=== PATIENT | male | born 1940 | race Caucasian/White ===

== ENCOUNTER → 2016-03-17 | Outpatient (CLI) | payer MEDICARE, BC ==
[2016-03-17 11:53] LABS: ALANINE AMINOTRANSFERASE 65 U/L (21-72); ALBUMIN 3.6 g/dL (3.5-5.0); ALKALINE PHOSPHATASE 169 U/L (38-126); ANION GAP 13 (5-19); ASPARTATE AMINO TRANSFERASE 57 U/L (17-59); BILIRUBIN,TOTAL 0.9 mg/dL (0.2-1.3); BLOOD UREA NITROGEN 33 mg/dL (7-20); CALCIUM 9.4 mg/dL (8.4-10.2); CARBON DIOXIDE 26 mmol/L (22-30); CHLORIDE 99 mmol/L (98-107); CHOLESTEROL 158.56 mg/dL (0-200); CREATININE RESULT 1.16 mg/dL (0.52-1.25); Direct HDL 44 mg/dL (>40); GLUCOSE 85 mg/dL (75-110); POTASSIUM 3.8 mmol/L (3.6-5.0); SODIUM 138.2 mmol/L (137-145); TOTAL PROTEIN 6.2 g/dL (6.3-8.2); TRIGLYCERIDES 117 mg/dL (<150)
[2016-03-17 12:05] LABS: DIRECT LDL 86 mg/dL (<100)
== END ==
LOC: OD 10:13
PROVIDERS: ATTEND Urology
DX: N40.1 Benign prostatic hyperplasia with lower urinary tract symptoms (principal); R31.9 Hematuria, unspecified; I48.0 Paroxysmal atrial fibrillation; Z79.01 Long term (current) use of anticoagulants; E78.5 Hyperlipidemia, unspecified; I50.32 Chronic diastolic (congestive) heart failure; I25.10 Atherosclerotic heart disease of native coronary artery without angina pectoris; Z79.899 Other long term (current) drug therapy
CPT/HCPCS: 36415; 80053; 80061; 85610

== ENCOUNTER → 2016-03-29 | Outpatient (CLI) | payer MEDICARE, BC ==
[2016-03-29 17:12] LABS: PROTHROMBIN TIME 20.9 SEC (11.4-15.4)
== END ==
LOC: OD 15:12
PROVIDERS: ATTEND Specialist
DX: I48.0 Paroxysmal atrial fibrillation (principal); Z79.01 Long term (current) use of anticoagulants; N40.1 Benign prostatic hyperplasia with lower urinary tract symptoms; R31.9 Hematuria, unspecified
CPT/HCPCS: 36415; 85610

== ENCOUNTER → 2016-04-29 | Outpatient (CLI) | payer MEDICARE, BC | LOC: OD 15:19 | PROVIDERS: ATTEND Specialist | DX: I48.0 Paroxysmal atrial fibrillation (principal); Z79.01 Long term (current) use of anticoagulants | CPT/HCPCS: 36415; 85610 ==

== ENCOUNTER → 2016-06-02 | Outpatient (CLI) | payer MEDICARE, BC ==
[2016-06-02 14:45] LABS: HEMATOCRIT 39.4 % (37.9-51.0); HEMOGLOBIN 13.3 g/dL (13.5-17.0); HGB HCT DIFFERENCE 0.5; MEAN CORPUSCULAR HEMOGLOBIN 32.1 pg (27.0-33.4); MEAN CORPUSCULAR HGB CONC 33.6 g/dL (32.0-36.0); MEAN CORPUSCULAR VOLUME 96 fl (80-97); RED BLOOD COUNT 4.12 10^6/uL (4.35-5.55); RED CELL DISTRIBUTION WIDTH 15.5 % (11.5-14.0); WHITE BLOOD COUNT 10.2 10^3/uL (4.0-10.5)
[2016-06-02 14:49] LABS: PROTHROMBIN TIME 33.3 SEC (11.4-15.4)
[2016-06-02 15:06] LABS: ALANINE AMINOTRANSFERASE 39 U/L (21-72); ALBUMIN 3.3 g/dL (3.5-5.0); ALKALINE PHOSPHATASE 129 U/L (38-126); ANION GAP 14 (5-19); ASPARTATE AMINO TRANSFERASE 43 U/L (17-59); BAND NEUTROPHILS % (MANUAL) 1 % (3-5); BASOPHILS % (MANUAL) 0 % (0-2); BILIRUBIN,DIRECT 0.4 mg/dL (0.0-0.4); BILIRUBIN,TOTAL 0.8 mg/dL (0.2-1.3); BLOOD UREA NITROGEN 25 mg/dL (7-20); C-REACTIVE PROTEIN 78.2 mg/L (<10.0); CALCIUM 8.9 mg/dL (8.4-10.2); CARBON DIOXIDE 27 mmol/L (22-30); CHLORIDE 96 mmol/L (98-107); CREATININE RESULT 0.96 mg/dL (0.52-1.25); EOSINOPHILS % (MANUAL) 0 % (0-6); GLUCOSE 90 mg/dL (75-110); LYMPHOCYTES % (MANUAL) 8 % (13-45); POTASSIUM 3.9 mmol/L (3.6-5.0); SODIUM 137.3 mmol/L (137-145); TOTAL CELLS COUNTED 100; TOTAL PROTEIN 6.5 g/dL (6.3-8.2)
[2016-06-02 15:09] LABS: ANISOCYTOSIS SLIGHT
[2016-06-02 15:20] LABS: ERYTHROCYTE SEDIMENTATION RATE 81 mm/hr (0-20)
== END ==
LOC: OD 13:18
PROVIDERS: ATTEND Nurse Practitioner Family
DX: T81.31XA Disruption of external operation (surgical) wound, not elsewhere classified, initial encounter (principal); I48.0 Paroxysmal atrial fibrillation; Z79.01 Long term (current) use of anticoagulants
CPT/HCPCS: 36415; 80053; 85025; 85610; 85652; 86140

== ENCOUNTER → 2016-06-25 | Outpatient (CLI) | payer MEDICARE, BC ==
[2016-06-25 16:08] LABS: PROTHROMBIN TIME 20.2 SEC (11.4-15.4)
== END ==
LOC: OD 14:57
PROVIDERS: ATTEND Specialist
DX: I48.0 Paroxysmal atrial fibrillation (principal); Z79.01 Long term (current) use of anticoagulants
CPT/HCPCS: 36415; 85610

== ENCOUNTER → 2016-09-03 | Outpatient (CLI) | payer MEDICARE, BC ==
--- NOTE | 2016-09-03 14:04 | RADIOLOGY REPORT (SQ) ---
EXAM DESCRIPTION: CT ABD/PELVIS NO ORAL OR IV COMPLETED DATE/TIME: 09/03/2016 1:02 pm REASON FOR STUDY: RLQ PAIN R10.31 RIGHT LOWER QUADRANT PAIN COMPARISON: None. TECHNIQUE: CT scan of the abdomen and pelvis performed without intravenous or oral contrast. Images reviewed with lung, soft tissue, and bone windows. Reconstructed coronal and sagittal MPR images revi ewed. All images stored on PACS. All CT scanners at this facility use dose modulation, iterative reconstruction, and/or weight based d osing when appropriate to reduce radiation dose to as low as reasonably achievable (ALARA). [facility]: Dose Right [facility]: CareDose [facility]: Dose Right [facility]: Teradose 4D [facility]: Smart [employer] RADIATION DOSE: Up-to-date CT equipment and radiation dose reduction techniques were employed. CTDIv ol: 22.1 mGy. DLP: 1270 mGy-cm.mGy. LIMITATIONS: None. FINDINGS: LOWER CHEST: No significant findings. No nodules or infiltrates. NON-CONTRASTED LIVER, SPLEEN, ADRENALS: Evaluation limited by lack of IV contrast. No identified sign ificant masses. PANCREAS: No masses. No peripancreatic inflammatory changes. GALLBLADDER: No identified stones by CT criteria. No inflammatory changes to suggest cholecystitis. RIGHT KIDNEY AND URETER: No suspicious masses. Assessment limited by lack of IV contrast. No signif icant calcifications. No hydronephrosis or hydroureter. LEFT KIDNEY AND URETER: No suspicious masses. Assessment limited by lack of IV contrast. No signifi cant calcifications. No hydronephrosis or hydroureter. AORTA AND RETROPERITONEUM: No aneurysm. No retroperitoneal masses or adenopathy. BOWEL AND PERITONEAL CAVITY: No obvious masses or inflammatory changes. No free fluid. APPENDIX: Surgically absent. PELVIS, BLADDER, AND ABDOMINAL WALL:No abnormal masses. No free fluid. Bladder normal. BONES: No significant findings. Degenerative changes in the spine. OTHER: No other significant finding. IMPRESSION: NO SIGNIFICANT OR ACUTE PROCESS IN THE ABDOMEN OR PELVIS. TECHNICAL DOCUMENTATION: JOB ID: [id number] Quality ID # [id number]: Final reports with documentation of one or more dose reduction techniques (e.g., Au tomated exposure control, adjustment of the mA and/or kV according to patient size, use of iterative reconstruction technique) 2010 [employer]- All Rights Reserved
== END ==
LOC: RAD 12:41
PROVIDERS: ATTEND Urology
DX: R10.31 Right lower quadrant pain (principal)
CPT/HCPCS: 74176

== ENCOUNTER 2016-09-24 15:51 | Emergency (ER) | payer MEDICARE, BC ==
--- NOTE | 2016-09-24 17:13 | ER Document Report ---
ED Medical Screen (RME) - General Chief Complaint: Urinary Problem Stated Complaint: BLOOD IN URINE Time Seen by Provider: 09/24/16 16:58 Notes: This 76-year-old male patient comes emergency room with frequency dysuria and hematuria. He was seen by his doctor 5 days ago and put on Septra, urine culture grew MRSA. He is on Coumadin for chronic atrial fibrillation. He also reports falling last week but was not seen for this. I have greeted and performed a rapid initial assessment of this patient. A comprehensive ED assessment and evaluation of the patient, analysis of test results and completion of the medical decision making process will be conducted by additional ED providers. TRAVEL OUTSIDE OF THE [place] IN LAST 30 DAYS: No - Related Data Allergies/Adverse Reactions: cephalexin monohydrate [From Nephera] Allergy (Severe, Verified 09/24/16 15:55) Past Medical History - Social History Chew tobacco use (# tins/day): No Frequency of alcohol use: None Drug Abuse: None - Past Medical History Cardiac Medical History: Reports: Hx Atrial Fibrillation, Hx DVT, Hx Hypertension Denies: Hx Heart Attack Pulmonary Medical History: Denies: Hx Asthma Neurological Medical History: Denies: Hx Cerebrovascular Accident, Hx Seizures Renal/ Medical History: Denies: Hx Peritoneal Dialysis GI Medical History: Reports: Hx Gastroesophageal Reflux Disease. Denies: Hx Hepatitis, Hx Hiatal Hernia, Hx Ulcer Musculoskeltal Medical History: Reports Hx Arthritis Psychiatric Medical History: Reports: Hx Depression Infectious Medical History: Denies: Hx Hepatitis Past Surgical History: Reports: Hx Orthopedic Surgery - Hip replacement. Denies : Hx Open Heart Surgery, Hx Pacemaker - Immunizations Hx Diphtheria, Pertussis, Tetanus Vaccination: Yes Physical Exam - Vital signs Vitals: Temp Pulse Resp BP Pulse Ox 97.5 F 59 L 16 145/77 H 98 09/24/16 15:55 09/24/16 15:55 09/24/16 15:55 09/24/16 15:55 09/24/16 15:55 Course - Vital Signs Vital signs: Temp Pulse Resp BP Pulse Ox 97.5 F 59 L 16 145/77 H 98 09/24/16 15:55 09/24/16 15:55 09/24/16 15:55 09/24/16 15:55 09/24/16 15:55
[2016-09-24 17:55] LABS: HEMATOCRIT 43.1 % (37.9-51.0); HGB HCT DIFFERENCE -1.1; MEAN CORPUSCULAR HGB CONC 32.5 g/dL (32.0-36.0); MEAN CORPUSCULAR VOLUME 102 fl (80-97); RED BLOOD COUNT 4.25 10^6/uL (4.35-5.55); RED CELL DISTRIBUTION WIDTH 17.6 % (11.5-14.0); WHITE BLOOD COUNT 12.4 10^3/uL (4.0-10.5)
[2016-09-24 17:56] LABS: PROTHROMBIN TIME 28.9 SEC (11.4-15.4)
[2016-09-24 18:04] LABS: ALANINE AMINOTRANSFERASE 40 U/L (21-72); ALBUMIN 4.1 g/dL (3.5-5.0); ALKALINE PHOSPHATASE 108 U/L (38-126); ANION GAP 13 (5-19); ASPARTATE AMINO TRANSFERASE 40 U/L (17-59); BILIRUBIN,DIRECT 0.4 mg/dL (0.0-0.4); BILIRUBIN,TOTAL 0.9 mg/dL (0.2-1.3); BLOOD UREA NITROGEN 37 mg/dL (7-20); CALCIUM 9.8 mg/dL (8.4-10.2); CARBON DIOXIDE 23 mmol/L (22-30); CHLORIDE 101 mmol/L (98-107); GLUCOSE 101 mg/dL (75-110); POTASSIUM 4.3 mmol/L (3.6-5.0); SODIUM 137.1 mmol/L (137-145); TOTAL PROTEIN 6.8 g/dL (6.3-8.2)
[2016-09-24 18:14] LABS: BAND NEUTROPHILS % (MANUAL) 3 % (3-5); BASOPHILS % (MANUAL) 0 % (0-2); EOSINOPHILS % (MANUAL) 0 % (0-6); LYMPHOCYTES % (MANUAL) 6 % (13-45); TOTAL CELLS COUNTED 100
[2016-09-24 18:18] LABS: ANISOCYTOSIS 1+; PLATELET CLUMPS PRESENT; POLYCHROMASIA SLIGHT
[2016-09-24 18:25] LABS: BILIRUBIN,URINE NEGATIVE (NEGATIVE); GLUCOSE, URINE NEGATIVE (NEGATIVE); KETONES,URINE NEGATIVE (NEGATIVE); LEUKOCYTE ESTERASE,URINE LARGE (NEGATIVE); NITRITE,URINE NEGATIVE (NEGATIVE); PROTEIN,URINE >=500 mg/dL (NEGATIVE); URINE SPECIFIC GRAVITY 1.015; UROBILINOGEN,URINE NEGATIVE mg/dL (<2.0)
[2016-09-24 18:26] LABS: APPEARANCE,URINE TURBID
[2016-09-24] MEDS ORDERED: VANCOMYCIN HCL INJ 1000 MG VIAL IV ONE (18:45)
[2016-09-24] MEDS ORDERED: NORMAL SALINE 500 ML IV PRN (18:46)
--- NOTE | 2016-09-24 18:50 | ER Document Report ---
ED General - General Chief Complaint: Urinary Problem Stated Complaint: BLOOD IN URINE Time Seen by Provider: 09/24/16 16:58 Mode of Arrival: Ambulatory Information source: Patient Notes: This is a 76-year-old man with a history of hypertension, CHF, rheumatoid arthritis (prednisone), BPH, atrial fibrillation (Coumadin). Patient started having urinary urgency, dysuria and hematuria last Tuesday and he was placed on Bactrim on Tuesday. Patient presents to the emergency room with persistent hematuria. He states that the urine actually looks like it is getting better. He states that a urine culture was sent and he has been told that it showed MRSA. He also reports being seen by his urologist 2 weeks ago and having a abdominal CT scan. TRAVEL OUTSIDE OF THE [place] IN LAST 30 DAYS: No - HPI Onset: Last week Onset/Duration: Gradual Quality of pain: No pain Severity: None Pain Level: Denies Associated symptoms: denies: Chills, Fever, Shortness of breath Exacerbated by: Denies Relieved by: Denies Similar symptoms previously: Yes Recently seen / treated by doctor: Yes - Related Data Allergies/Adverse Reactions: cephalexin monohydrate [From Keflex] Allergy (Severe, Verified 09/24/16 15:55) Past Medical History - General Information source: Patient - Social History Smoking Status: Never Smoker Cigarette use (# per day): No Chew tobacco use (# tins/day): No Frequency of alcohol use: None Drug Abuse: None Lives with: Alone Family History: Reviewed & Not Pertinent Patient has suicidal ideation: No Patient has homicidal ideation: No - Past Medical History Cardiac Medical History: Reports: Hx Atrial Fibrillation, Hx DVT, Hx Hypertension Denies: Hx Heart Attack Pulmonary Medical History: Denies: Hx Asthma Neurological Medical History: Denies: Hx Cerebrovascular Accident, Hx Seizures Renal/ Medical History: Denies: Hx Peritoneal Dialysis GI Medical History: Reports: Hx Gastroesophageal Reflux Disease. Denies: Hx Hepatitis, Hx Hiatal Hernia, Hx Ulcer Musculoskeltal Medical History: Reports Hx Arthritis Psychiatric Medical History: Reports: Hx Depression Infectious Medical History: Denies: Hx Hepatitis Past Surgical History: Reports: Hx Orthopedic Surgery - Hip replacement. Denies : Hx Open Heart Surgery, Hx Pacemaker - Immunizations Hx Diphtheria, Pertussis, Tetanus Vaccination: Yes Review of Systems - Review of Systems Constitutional: denies: Chills, Fever EENT: No symptoms reported Cardiovascular: No symptoms reported Respiratory: No symptoms reported Gastrointestinal: No symptoms reported Genitourinary: See HPI Male Genitourinary: No symptoms reported Musculoskeletal: No symptoms reported Skin: No symptoms reported Hematologic/Lymphatic: No symptoms reported Neurological/Psychological: No symptoms reported Physical Exam - Vital signs Vitals: Temp Pulse Resp BP Pulse Ox 97.5 F 59 L 16 145/77 H 98 09/24/16 15:55 09/24/16 15:55 09/24/16 15:55 09/24/16 15:55 09/24/16 15:55 Notes: Physical exam: GENERAL: This is a well-appearing 76-year-old man sitting up in the stretcher, he is alert and oriented 3, no acute distress. He denies pain at this time. HEAD: Atraumatic, normocephalic. EYES: Pupils equal round and reactive to light, extraocular movements intact, sclera anicteric, conjunctiva are normal. ENT: TMs normal, nares patent, oropharynx clear without exudates. Moist mucous membranes. NECK: Normal range of motion, supple without lymphadenopathy LUNGS: Breath sounds clear to auscultation bilaterally and equal. No wheezes rales or rhonchi. HEART: Regular rate and rhythm without murmurs, rubs or gallops. ABDOMEN: Soft, normoactive bowel sounds. No tenderness to palpation. No guarding, no rebound. No masses appreciated. EXTREMITIES: Normal range of motion, no pitting or edema. No clubbing or cyanosis. NEUROLOGICAL: Cranial nerves II through XII grossly intact. Normal speech, moving all extremities, no focal deficits. PSYCH: Normal mood, normal affect. SKIN: Warm, Dry, normal turgor, no rashes or lesions noted. Course - Re-evaluation Re-evalutation: 09/24/16 18:49 I reviewed the recent urinary culture which does show MRSA which is sensitive to Bactrim (which the patient has been on) as well as vancomycin. I have chosen to give the patient a dose of IV vancomycin while he is here given the fact that he is older and immune compromised (on prednisone). His BUN and creatinine are little bit higher than what they have been in the past, I will give him some IV fluids. I have reviewed the recent CAT scan of the abdomen ( September 03, 2016) and it did not show any abdominal masses or significant pathology. On exam, the patient's abdomen is soft and nontender. 09/25/16 04:27 Note: I did recommend the patient stop his Coumadin until after the urine infection has been cleared. I have recommended he follow-up with his urologist on Tuesday (Dr. Bennett). - Vital Signs Vital signs: Temp Pulse Resp BP Pulse Ox 97.7 F 61 16 132/74 H 99 09/24/16 22:10 09/24/16 22:10 09/24/16 22:10 09/24/16 22:10 09/24/16 22:10 - Laboratory Result Diagrams: 09/24/16 17:35 09/24/16 17:35 Laboratory results interpreted by me: 09/24/16 09/24/16 09/24/16 17:35 17:35 17:35 WBC 12.4 H RBC 4.25 L MCV 102 H RDW 17.6 H Seg Neuts % (Manual) 86 H Lymphocytes % (Manual) 6 L Abs Neuts (Manual) 11.0 H PT 28.9 H BUN 37 H Creatinine 1.50 H Est GFR ( Amer) 55 L Est GFR (Non-Af Amer) 46 L Urine Protein Urine Blood Ur Leukocyte Esterase 09/24/16 17:35 WBC RBC MCV RDW Seg Neuts % (Manual) Lymphocytes % (Manual) Abs Neuts (Manual) PT BUN Creatinine Est GFR ( Amer) Est GFR (Non-Af Amer) Urine Protein >=500 H Urine Blood MODERATE H Ur Leukocyte Esterase LARGE H Discharge - Discharge Clinical Impression: UTI Condition: Stable Disposition: HOME, SELF-CARE Instructions: Urinary Tract Infection ([facility]) Additional Instructions: Recommendations: As we discussed, want you to hold the Coumadin (do not take it until the bleeding subsides). Continue current medicines (except for the Coumadin). Return to the emergency room for worsening bleeding, any weakness, any concerns or to getting worse. I left the number for primary care doctor: Dr. Mamie Meyer [address], [place] [address] [phone] Dr [place] Address: [address] [place] [address] [place] [address] Referrals: CHELE CALHOUN MD [Primary Care Provider] - 09/27/16 SHIN BENNETT MD [NO LOCAL MD] - 09/27/16 (Follow-up with the urologist on Tuesday)
[2016-09-24 22:27] VITALS: BP 132/74
== END 2016-09-24 22:50 | disposition home or self-care (01) ==
LOC: ER 15:51
DX: N39.0 Urinary tract infection, site not specified (principal); R39.198 Other difficulties with micturition; I10 Essential (primary) hypertension; I50.9 Heart failure, unspecified; M06.9 Rheumatoid arthritis, unspecified; N40.0 Benign prostatic hyperplasia without lower urinary tract symptoms; I48.91 Unspecified atrial fibrillation; Z79.01 Long term (current) use of anticoagulants; R39.15 Urgency of urination; R30.0 Dysuria
CPT/HCPCS: 99283; 96365; 96366; 36415; 85025; 85610; 80053; 81001; J7040; J3370

== ENCOUNTER 2016-09-29 16:40 | Inpatient (IN) | payer MEDICARE, BC ==
--- NOTE | 2016-09-29 17:27 | ER Document Report ---
ED Medical Screen (RME) - General Chief Complaint: General Weakness Stated Complaint: BODY WEAKNESS Time Seen by Provider: 09/29/16 17:24 Notes: Patient states he was treated he has been taking Bactrim at home but feels that he is getting worse. He states he has had bloody urine that is gradually getting worse despite stopping his Coumadin. He also states he has been feeling weaker and more nauseous. He states he saw his urologist yesterday and after some studies returned today his urologist called and told him to come to the emergency department. TRAVEL OUTSIDE OF THE [place] IN LAST 30 DAYS: No - Related Data Allergies/Adverse Reactions: cephalexin monohydrate [From Keflex] Allergy (Severe, Verified 09/29/16 17:11) Past Medical History - Social History Chew tobacco use (# tins/day): No Frequency of alcohol use: None Drug Abuse: None - Past Medical History Cardiac Medical History: Reports: Hx Atrial Fibrillation, Hx DVT, Hx Hypertension Denies: Hx Heart Attack Pulmonary Medical History: Denies: Hx Asthma Neurological Medical History: Denies: Hx Cerebrovascular Accident, Hx Seizures Renal/ Medical History: Denies: Hx Peritoneal Dialysis GI Medical History: Reports: Hx Gastroesophageal Reflux Disease. Denies: Hx Hepatitis, Hx Hiatal Hernia, Hx Ulcer Musculoskeltal Medical History: Reports Hx Arthritis Psychiatric Medical History: Reports: Hx Depression Infectious Medical History: Denies: Hx Hepatitis Past Surgical History: Reports: Hx Orthopedic Surgery - Hip replacement. Denies : Hx Open Heart Surgery, Hx Pacemaker - Immunizations Hx Diphtheria, Pertussis, Tetanus Vaccination: Yes Physical Exam - Vital signs Vitals: Temp Pulse Resp BP Pulse Ox 98.2 F 119 H 22 H 111/50 L 95 09/29/16 17:07 09/29/16 17:07 09/29/16 17:07 09/29/16 17:07 09/29/16 17:07 Course - Vital Signs Vital signs: Temp Pulse Resp BP Pulse Ox 98.2 F 119 H 22 H 111/50 L 95 09/29/16 17:07 09/29/16 17:07 09/29/16 17:07 09/29/16 17:07 09/29/16 17:07
[2016-09-29 18:55] LABS: VENOUS BLOOD BASE EXCESS -0.4 mmol/L; VENOUS BLOOD HCO3 25.6 mmol/L (20-32); VENOUS BLOOD PH 7.36 (7.30-7.42)
[2016-09-29 18:56] LABS: HEMATOCRIT 37.7 % (37.9-51.0); HEMOGLOBIN 12.5 g/dL (13.5-17.0); HGB HCT DIFFERENCE -0.2; MEAN CORPUSCULAR HEMOGLOBIN 32.8 pg (27.0-33.4); MEAN CORPUSCULAR HGB CONC 33.1 g/dL (32.0-36.0); MEAN CORPUSCULAR VOLUME 99 fl (80-97); WHITE BLOOD COUNT 14.4 10^3/uL (4.0-10.5)
[2016-09-29 19:03] LABS: PROTHROMBIN TIME 17.5 SEC (11.4-15.4)
[2016-09-29] MEDS ORDERED: PREDNISONE 10 MG TABLET PO ONE (19:03)
[2016-09-29 19:10] LABS: ALANINE AMINOTRANSFERASE 84 U/L (21-72); ALBUMIN 3.7 g/dL (3.5-5.0); ALKALINE PHOSPHATASE 165 U/L (38-126); ANION GAP 15 (5-19); ASPARTATE AMINO TRANSFERASE 106 U/L (17-59); BILIRUBIN,DIRECT 1.3 mg/dL (0.0-0.4); BILIRUBIN,TOTAL 1.9 mg/dL (0.2-1.3); BLOOD UREA NITROGEN 35 mg/dL (7-20); CALCIUM 9.1 mg/dL (8.4-10.2); CARBON DIOXIDE 20 mmol/L (22-30); CHLORIDE 89 mmol/L (98-107); CREATININE RESULT 1.78 mg/dL (0.52-1.25); GLUCOSE 105 mg/dL (75-110); POTASSIUM 4.5 mmol/L (3.6-5.0); SODIUM 124.1 mmol/L (137-145); TOTAL PROTEIN 6.8 g/dL (6.3-8.2)
--- NOTE | 2016-09-29 19:14 | ER Document Report ---
ED General - General Chief Complaint: General Weakness Stated Complaint: BODY WEAKNESS Time Seen by Provider: 09/29/16 17:24 TRAVEL OUTSIDE OF THE [place] IN LAST 30 DAYS: No - HPI Notes: 76-year-old male with history of atrial fibrillation recently stopped his Coumadin as he was placed on Bactrim presents with persisting hematuria, dysuria and some urinary hesitancy. He has been treated now on Bactrim for the last 5 days but still having persisting symptoms. He stopped his Coumadin with the initiation of the Bactrim. He had generalized weakness. He has chills and some shaking but no obvious fever. He saw his urologist, Dr. Bennett yesterday who evaluated patient. He did an ultrasound and reviewed labs. Ultrasound did not show any abnormality. He denies any specific flank or abdominal pain. He has had some mild nausea but no vomiting. He had been a little constipated but now has some diarrhea after using medication for the constipation. His urologist recommended he come to the emergency department today for further evaluation. Recent urine culture showed MRSA sensitive to Bactrim and as well he had received a dose of vancomycin. He denies any chest pain or breathing difficulty. He does complain of generalized pain consistent with his rheumatoid arthritis for which he is on prednisone for. - Related Data Allergies/Adverse Reactions: cephalexin monohydrate [From Keflex] Allergy (Severe, Verified 09/29/16 17:11) Past Medical History - Social History Smoking Status: Never Smoker Chew tobacco use (# tins/day): No Frequency of alcohol use: None Drug Abuse: None Family History: Reviewed & Not Pertinent - Past Medical History Cardiac Medical History: Reports: Hx Atrial Fibrillation, Hx DVT, Hx Hypertension Denies: Hx Heart Attack Pulmonary Medical History: Denies: Hx Asthma Neurological Medical History: Denies: Hx Cerebrovascular Accident, Hx Seizures Renal/ Medical History: Denies: Hx Peritoneal Dialysis GI Medical History: Reports: Hx Gastroesophageal Reflux Disease. Denies: Hx Hepatitis, Hx Hiatal Hernia, Hx Ulcer Musculoskeltal Medical History: Reports Hx Arthritis Psychiatric Medical History: Reports: Hx Depression Infectious Medical History: Denies: Hx Hepatitis Past Surgical History: Reports: Hx Orthopedic Surgery - Hip replacement. Denies : Hx Open Heart Surgery, Hx Pacemaker - Immunizations Hx Diphtheria, Pertussis, Tetanus Vaccination: Yes Review of Systems - Review of Systems -: Yes All other systems reviewed and negative Physical Exam - Vital signs Vitals: Temp Pulse Resp BP Pulse Ox 98.2 F 119 H 22 H 111/50 L 95 09/29/16 17:07 09/29/16 17:07 09/29/16 17:07 09/29/16 17:07 09/29/16 17:07 Interpretation: Tachycardic - Notes Notes: GENERAL: VS as per nursing doc. Well-appearing, well-nourished and in no acute distress. He does have some tremors noted. HEAD: Atraumatic, normocephalic. EYES: Pupils equal round and reactive to light, extraocular movements intact, sclera anicteric, no conjunctival injection or discharge. ENT: Nares patent, oropharynx clear without exudates, slightly dry mucous membranes. NECK: Normal range of motion, supple without lymphadenopathy. LUNGS: Breath sounds clear to auscultation bilaterally and equal. No wheezes rales or rhonchi. HEART: Irregularly irregular and tachycardic without murmurs. ABDOMEN: Soft, non-tender, no obvious bladder distention BACK: No CVA tenderness. EXTREMITIES: Normal range of motion, no calf tenderness, no edema. NEUROLOGICAL: Cranial nerves grossly intact. Normal speech. Normal sensory and motor exams. No gross cerebellar abnormalities. PSYCH: Normal mood, normal affect. SKIN: Warm, dry, normal turgor, no lesions noted. Course - Re-evaluation Re-evalutation: 09/29/16 19:16 As the patient's urinalysis from September 20 only showed 20-30,000 CFU/mL, we will perform a CT scan to rule out any other cause of the hematuria. Urinalysis is pending at this time. His creatinine continues to increase so we will hydrate the patient. I suspect with his tachycardia and atrial fibrillation and the worsening acute kidney injury, he potentially will need admission so I will discussed with the admitting physician. - Vital Signs Vital signs: Temp Pulse Resp BP Pulse Ox 98.2 F 119 H 22 H 111/50 L 95 09/29/16 17:07 09/29/16 17:07 09/29/16 17:07 09/29/16 17:07 09/29/16 17:07 - Laboratory Result Diagrams: 09/29/16 18:12 09/29/16 18:12 Laboratory results interpreted by me: 09/29/16 09/29/16 09/29/16 18:12 18:12 18:12 WBC 14.4 H RBC 3.80 L Hgb 12.5 L Hct 37.7 L MCV 99 H RDW 17.0 H Seg Neuts % (Manual) 85 H Lymphocytes % (Manual) 7 L Abs Neuts (Manual) 13.0 H PT 17.5 H Sodium 124.1 L Chloride 89 L Carbon Dioxide 20 L BUN 35 H Creatinine 1.78 H Est GFR ( Amer) 45 L Est GFR (Non-Af Amer) 38 L Lactic Acid Total Bilirubin 1.9 H Direct Bilirubin 1.3 H AST 106 H ALT 84 H Alkaline Phosphatase 165 H Urine Protein Urine Blood Urine Urobilinogen Ur Leukocyte Esterase 09/29/16 09/29/16 18:12 19:50 WBC RBC Hgb Hct MCV RDW Seg Neuts % (Manual) Lymphocytes % (Manual) Abs Neuts (Manual) PT Sodium Chloride Carbon Dioxide BUN Creatinine Est GFR ( Amer) Est GFR (Non-Af Amer) Lactic Acid 2.8 H Total Bilirubin Direct Bilirubin AST ALT Alkaline Phosphatase Urine Protein 100 H Urine Blood LARGE H Urine Urobilinogen 4.0 H Ur Leukocyte Esterase MODERATE H - EKG Interpretation by Id Rhythm: A.Fib - Rate 144, atrial fibrillation, no obvious ischemia. Nonspecific ST and T-wave abnormalities. - Consults Ariane Time consulted: 20:43 Reason for consultation: 09/29/16 20:43 Admission for evaluation treatment of the listed problems Discharge - Discharge Clinical Impression: Hematuria, Hyponatremia, Acute kidney injury, Atrial fibrillation with rapid ventricular response Condition: Fair Disposition: ADMITTED INPATIENT Admitting Provider: Ariane Unit Admitted: Telemetry Referrals: MARYELLEN AGRAWAL MD [Primary Care Provider] - Follow up as needed
[2016-09-29] MEDS ORDERED: NORMAL SALINE 500 ML IV ONE (19:18)
[2016-09-29 19:28] LABS: BAND NEUTROPHILS % (MANUAL) 5 % (3-5); BASOPHILS % (MANUAL) 0 % (0-2); EOSINOPHILS % (MANUAL) 0 % (0-6); LYMPHOCYTES % (MANUAL) 7 % (13-45); TOTAL CELLS COUNTED 100
[2016-09-29 19:29] LABS: TOXIC GRANULATION SLIGHT
[2016-09-29 19:30] LABS: ANISOCYTOSIS 1+; POIKILOCYTOSIS SLIGHT
[2016-09-29 20:15] LABS: APPEARANCE,URINE CLOUDY; BILIRUBIN,URINE NEGATIVE (NEGATIVE); GLUCOSE, URINE NEGATIVE (NEGATIVE); KETONES,URINE NEGATIVE (NEGATIVE); LEUKOCYTE ESTERASE,URINE MODERATE (NEGATIVE); NITRITE,URINE NEGATIVE (NEGATIVE); PROTEIN,URINE 100 mg/dL (NEGATIVE); URINE SPECIFIC GRAVITY 1.021
[2016-09-29] MEDS ORDERED: VANCOMYCIN HCL INJ 1000 MG VIAL IV ONE (20:35)
[2016-09-29] MEDS ORDERED: NORMAL SALINE 1,000 ML IV ONE (20:47)
--- NOTE | 2016-09-29 20:47 | RADIOLOGY REPORT (SQ) ---
EXAM DESCRIPTION: CT ABD/PELVIS NO ORAL OR IV COMPLETED DATE/TIME: 09/29/2016 8:28 pm REASON FOR STUDY: Hematuria, Urinary Hesitancy COMPARISON: 09/03/2016 TECHNIQUE: CT scan of the abdomen and pelvis performed without intravenous or oral contrast. Images reviewed with lung, soft tissue, and bone windows. Reconstructed coronal and sagittal MPR images revi ewed. All images stored on PACS. All CT scanners at this facility use dose modulation, iterative reconstruction, and/or weight based d osing when appropriate to reduce radiation dose to as low as reasonably achievable (ALARA). [facility]: Dose Right [facility]: CareDose [facility]: Dose Right [facility]: Teradose 4D [facility]: [employer] RADIATION DOSE: Up-to-date CT equipment and radiation dose reduction techniques were employed. CTDIv ol: 18.5 mGy. DLP: 1073 mGy-cm.mGy. LIMITATIONS: None. FINDINGS: LOWER CHEST: No acute findings. No infiltrates. NON-CONTRASTED LIVER, SPLEEN, ADRENALS: Evaluation limited by lack of IV contrast. No identified sign ificant masses. PANCREAS: No masses. No peripancreatic inflammatory changes. GALLBLADDER: No identified stones by CT criteria. No inflammatory changes to suggest cholecystitis. RIGHT KIDNEY AND URETER: No suspicious masses. Assessment limited by lack of IV contrast. No signif icant calcifications. No hydronephrosis or hydroureter. LEFT KIDNEY AND URETER: No suspicious masses. Assessment limited by lack of IV contrast. No signifi cant calcifications. No hydronephrosis or hydroureter. AORTA AND RETROPERITONEUM: No aneurysm. No retroperitoneal masses or adenopathy. BOWEL AND PERITONEAL CAVITY: Diverticulosis. No obvious masses or inflammatory changes. No free flui d. APPENDIX: Not visualized. PELVIS, BLADDER, AND ABDOMINAL WALL:New wall thickening of the bladder with intramural-intraluminal g as present at the anterior-superior bladder wall suggesting acute infectious process. There may be a patent urachus present. . BONES: No significant findings. OTHER: No other significant finding. IMPRESSION: New wall thickening of the bladder with intramural-intraluminal gas present at the anter ior-superior bladder wall suggesting acute infectious process. There may be a patent urachus present . Consider urology consultation and follow-up. TECHNICAL DOCUMENTATION: JOB ID: [id number] Quality ID # [id number]: Final reports with documentation of one or more dose reduction techniques (e.g., Au tomated exposure control, adjustment of the mA and/or kV according to patient size, use of iterative reconstruction technique) 2010 [employer]- All Rights Reserved
--- NOTE | 2016-09-29 21:48 | EKG REPORT ---
SEVERITY:- ABNORMAL ECG - ATRIAL FIBRILLATION, V-RATE 90-181 VENTRICULAR PREMATURE COMPLEX BORDERLINE PROLONGED QT INTERVAL : Confirmed by: Ramiro Scott 29-Sep-2016 21:47:17
[2016-09-29] MEDS ORDERED: ZOLPIDEM TARTRATE 5 MG TABLET PO PRN (23:26)
[2016-09-29] MEDS ORDERED: DOCUSATE SODIUM 100 MG CAPSULE PO PRN (23:26)
[2016-09-29] MEDS ORDERED: ENOXAPARIN SODIUM INJ 30 MG/0.3 ML DISP.SYRIN SUBCUT ONE (23:30)
[2016-09-29] MEDS ORDERED: LEVOFLOXACIN 500 MG/D5W RTU 500 MG/100 ML RTUPB IV ONE (23:45)
[2016-09-30] MEDS: DILTIAZEM HCL/D5W 125 MG/125 ML RTUINJ IV PRN ×2 (01:37→13:05)
[2016-09-30] MEDS: LANSOPRAZOLE 30 MG TAB.RAP.DR PO SCH (09:13)
[2016-09-30 09:20] LABS: HEMATOCRIT 35.5 % (37.9-51.0); HEMOGLOBIN 11.8 g/dL (13.5-17.0); HGB HCT DIFFERENCE -0.1; MEAN CORPUSCULAR HGB CONC 33.1 g/dL (32.0-36.0); MEAN CORPUSCULAR VOLUME 100 fl (80-97); RED BLOOD COUNT 3.56 10^6/uL (4.35-5.55); RED CELL DISTRIBUTION WIDTH 16.8 % (11.5-14.0); WHITE BLOOD COUNT 15.2 10^3/uL (4.0-10.5)
[2016-09-30 09:23] LABS: ALANINE AMINOTRANSFERASE 70 U/L (21-72); ALBUMIN 2.9 g/dL (3.5-5.0); ALKALINE PHOSPHATASE 152 U/L (38-126); ANION GAP 12 (5-19); ASPARTATE AMINO TRANSFERASE 81 U/L (17-59); BILIRUBIN,TOTAL 1.5 mg/dL (0.2-1.3); BLOOD UREA NITROGEN 30 mg/dL (7-20); CALCIUM 8.8 mg/dL (8.4-10.2); CARBON DIOXIDE 21 mmol/L (22-30); CHLORIDE 94 mmol/L (98-107); CREATININE RESULT 1.36 mg/dL (0.52-1.25); GLUCOSE 114 mg/dL (75-110); POTASSIUM 3.8 mmol/L (3.6-5.0); SODIUM 127.2 mmol/L (137-145); TOTAL PROTEIN 5.5 g/dL (6.3-8.2)
[2016-09-30 09:38] LABS: BAND NEUTROPHILS % (MANUAL) 7 % (3-5); BASOPHILS % (MANUAL) 0 % (0-2); EOSINOPHILS % (MANUAL) 0 % (0-6); LYMPHOCYTES % (MANUAL) 3 % (13-45); TOTAL CELLS COUNTED 100; TOXIC GRANULATION SLIGHT; TOXIC VACUOLATION PRESENT
[2016-09-30 09:39] LABS: ANISOCYTOSIS 1+; OVALOCYTES SLIGHT; POIKILOCYTOSIS SLIGHT
[2016-09-30] MEDS: ALLOPURINOL 100 MG TABLET PO SCH (09:55)
[2016-09-30] MEDS: PREDNISONE 10 MG TABLET PO SCH (09:55)
[2016-09-30] MEDS: METOPROLOL TARTRATE 50 MG TABLET PO SCH ×2 (09:55→21:53)
[2016-09-30] MEDS: CITALOPRAM HYDROBROMIDE 20 MG TABLET PO SCH (09:56)
[2016-09-30] MEDS: FUROSEMIDE 20 MG TABLET PO SCH (09:56)
[2016-09-30] MEDS: DUTASTERIDE 0.5 MG CAPSULE PO SCH (09:56)
--- NOTE | 2016-09-30 13:29 | PDOC H&P ---
History of Present Illness Admission Date/PCP: 09/29/16 20:52 MARYELLEN AGRAWAL Patient complains of: Dysuria, Hematuria, Frequency- 10 days; Failed outpt treatment with Bactrim. History of Present Illness: ROSLYN FELIX is a 76 year old male with hx of HTN/Hyperlipidemia/A-fib on warfarin/CHF- diastolic dysfunction/Rheumatoid arthritis/CKD/GERD/BPH/Gout/ neuropathy/Lymphedema/Depression who was having dysuria, frequency, hematuria and hesitancy for about 10 days. He was being treated with Bactrim by his urologist, Dr Bennett and has had it for 5 days but he is still having symptoms and was seen by his urologist the day before presentation.He was called by urologist office to go to ER for evaluation on the day of presentation. He also has nausea, chills, weakness, but no fever or loin pain. Past Medical History Cardiac Medical History: Reports: Atrial Fibrillation, DVT, Hypertension Denies: Myocardial Infarction Pulmonary Medical History: Denies: Asthma Neurological Medical History: Denies: Seizures GI Medical History: Reports: Gastroesophageal Reflux Disease Denies: Hepatitis, Hiatal Hernia Musculoskeltal Medical History: Reports: Arthritis Psychiatric Medical History: Reports: Depression Hematology: Reports: Anemia Denies: Sickle Cell Disease Past Surgical History Past Surgical History: Reports: Orthopedic Surgery - Hip replacement Denies: Pacemaker Social History Smoking Status: Never Smoker Frequency of Alcohol Use: None Hx Recreational Drug Use: No Drugs: None Hx Prescription Drug Abuse: No Family History Family History: Reviewed & Not Pertinent Parental Family History Reviewed: Yes Children Family History Reviewed: Yes Sibling(s) Family History Reviewed.: Yes Medication/Allergy Allergies/Adverse Reactions: cephalexin monohydrate [From Keflex] Allergy (Severe, Verified 09/29/16 17:11) Review of Systems All systems: as per PMH Constitutional: PRESENT: as per HPI, chills, weakness Eyes: PRESENT: as per HPI Ears: PRESENT: as per HPI Nose, Mouth, and Throat: PRESENT: as per HPI Cardiovascular: PRESENT: as per HPI Respiratory: PRESENT: as per HPI Gastrointestinal: PRESENT: diarrhea, nausea Genitourinary: PRESENT: as per HPI, difficulty urinating, dysuria, hematuria Musculoskeletal: PRESENT: as per HPI Neurological: PRESENT: as per HPI Psychiatric: PRESENT: as per HPI Endocrine: PRESENT: as per HPI Hematologic/Lymphatic: PRESENT: as per HPI Allergic/Immunologic: PRESENT: as per HPI Physical Exam Vital Signs: Temp Pulse Resp BP Pulse Ox 99.0 F 95 20 114/86 H 98 09/30/16 02:01 09/30/16 02:01 09/29/16 23:54 09/30/16 11:01 09/30/16 02:01 Intake & Output 09/29/16 09/30/16 10/01/16 06:59 06:59 06:59 Intake Total 363 Output Total 400 Balance -37 Weight 124.8 kg General appearance: PRESENT: no acute distress, cooperative, well-developed, well-nourished Head exam: PRESENT: atraumatic, normocephalic Eye exam: PRESENT: EOMI, PERRLA Ear exam: PRESENT: normal external ear exam, TM's normal bilaterally Mouth exam: PRESENT: neck supple, tongue midline Neck exam: PRESENT: full ROM Respiratory exam: PRESENT: clear to auscultation ton, symmetrical Cardiovascular exam: PRESENT: +S1, +S2 Pulses: PRESENT: +2 pedal pulses bilateral GI/Abdominal exam: PRESENT: normal bowel sounds, soft Rectal exam: PRESENT: deferred Extremities exam: PRESENT: full ROM Musculoskeletal exam: PRESENT: full ROM Neurological exam: PRESENT: alert, awake, oriented to person, oriented to place , oriented to time Psychiatric exam: PRESENT: normal mood Results Laboratory Results: 09/30/16 04:15 09/30/16 04:15 09/29/16 09/30/16 09/30/16 23:00 04:15 04:15 WBC 15.2 H RBC 3.56 L Hgb 11.8 L Hct 35.5 L MCV 100 H MCH 33.0 MCHC 33.1 RDW 16.8 H Plt Count 203 Seg Neutrophils % Not Reportable Lymphocytes % Not Reportable Monocytes % Not Reportable Eosinophils % Not Reportable Basophils % Not Reportable Absolute Neutrophils Not Reportable Absolute Lymphocytes Not Reportable Absolute Monocytes Not Reportable Absolute Eosinophils Not Reportable Absolute Basophils Not Reportable Sodium Potassium Chloride Carbon Dioxide Anion Gap BUN Creatinine Est GFR ( Amer) Est GFR (Non-Af Amer) Glucose Lactic Acid 1.5 Calcium Total Bilirubin AST ALT Alkaline Phosphatase Total Protein Albumin TSH 4.13 09/30/16 04:15 WBC RBC Hgb Hct MCV MCH MCHC RDW Plt Count Seg Neutrophils % Lymphocytes % Monocytes % Eosinophils % Basophils % Absolute Neutrophils Absolute Lymphocytes Absolute Monocytes Absolute Eosinophils Absolute Basophils Sodium 127.2 L Potassium 3.8 Chloride 94 L Carbon Dioxide 21 L Anion Gap 12 BUN 30 H Creatinine 1.36 H Est GFR ( Amer) > 60 Est GFR (Non-Af Amer) 51 L Glucose 114 H Lactic Acid Calcium 8.8 Total Bilirubin 1.5 H AST 81 H ALT 70 Alkaline Phosphatase 152 H Total Protein 5.5 L Albumin 2.9 L TSH Impressions: Abdomen/Pelvis CT 09/29/16 19:23 IMPRESSION: New wall thickening of the bladder with intramural-intraluminal gas present at the anterior-superior bladder wall suggesting acute infectious process. There may be a patent urachus present. Consider urology consultation and follow-up. Assessment & Plan - Diagnosis (1) Atrial fibrillation with rapid ventricular response Is this a current diagnosis for this admission?: Yes Plan: Ct with Cardizem drip; Ct with Metoprolol 500 mg BID PO; Restart Warfarin 4.5 mg on mondays, wednesdays and fridays; then 4 mg on Tuesdays, , saturdays and sundays. F/u PT/INR daily. (2) Urinary tract infection Qualifiers: Urinary tract infection type: acute cystitis Is this a current diagnosis for this admission?: Yes Plan: Ct with Levaquin 500 mg qd IV; Tyenol 650 mg q6h po prn; f/u urine and blood cultures. (3) OMAR (acute kidney injury) Is this a current diagnosis for this admission?: Yes Plan: Ct with IV Fluids normal saline at 75 cc/hour cautiously due to hx of CHF. Strict input/output chart; Daily weight;Avoid nephrotoxics; monitor chemistries daily. (4) Hyponatremia Is this a current diagnosis for this admission?: Yes Plan: Ct with IV fluids normal saline at 75 cc/hr; Monitor chemistries daily. (5) HTN (hypertension) Qualifiers: Hypertension type: essential hypertension Qualified Code(s): I10 - Essential (primary) hypertension Is this a current diagnosis for this admission?: Yes Plan: Ct with Metoprolol 50 mg BID po; 2 G sodium diet. (6) Hyperlipemia Qualifiers: Hyperlipidemia type: unspecified Qualified Code(s): E78.5 - Hyperlipidemia , unspecified Is this a current diagnosis for this admission?: Yes Plan: Ct with Atorvastatin 10 mg qhs po; 200 mg cholesterol diet. (7) Chronic diastolic CHF (congestive heart failure) Is this a current diagnosis for this admission?: Yes Plan: We will decrease Lasix to 20mg qd po due to acute kidney injury; D/C Metolazone 5 mg qd po; Hold KCL 10 MEQ qd po since his potassium is normal; monitor chemistries daily.Daily weight; strict input/output chart. (8) Rheumatoid arthritis Qualifiers: Rheumatoid arthritis location: unspecified site Is this a current diagnosis for this admission?: Yes Plan: CT with Methotrexate 10 mg po on mondays; Prednisone 10 mg qd po. (9) Neuropathy Is this a current diagnosis for this admission?: Yes Plan: Ct with Gabapentin 300 mg qhs po. (10) BPH (benign prostatic hyperplasia) Qualifiers: Lower urinary tract symptom detail: unspecified Is this a current diagnosis for this admission?: Yes Plan: Ct with Avodart 0.5 mg qd po; Rapaflo 4mg qd po. (11) Reflux esophagitis Is this a current diagnosis for this admission?: Yes Plan: Ct with Prevacid 30 mg qd po since we do not have Omeprazole in our formulary. (12) Gout Qualifiers: Gout site: unspecified site Is this a current diagnosis for this admission?: Yes Plan: We will decrease Allopurinol to 100 mg qd po due to acute kidney injury. (13) DVT prophylaxis Is this a current diagnosis for this admission?: Yes Plan: Ct with Lovenox 30 mg qd subcut; SCD. - Time Time Spent: 30 to 50 Minutes Medications reviewed and adjusted accordingly: Yes Anticipated discharge: Home Within: within 72 hours - Inpatient Certification Medical Necessity: Failure to Improve With Outpatient Therapy, Significant Comorbidiites Make Outpatient Treatment Too Risky, Need Close Monitoring Due to Risk of Patient Decompensation, Need For IV Fluids, Need for IV Antibiotics, Risk of Complication if Not Cared For in Hospital, Risk of Diagnosis Which Will Require Inpatient Eval/Care/Monitoring
[2016-09-30 14:25] LABS: PROTHROMBIN TIME 17.3 SEC (11.4-15.4)
[2016-09-30] MEDS ORDERED: DILTIAZEM HCL 60 MG TABLET PO ONE (18:00)
[2016-09-30] MEDS: NORMAL SALINE 1000 ML 1,000 ML IV PRN (18:15)
[2016-09-30] MEDS: ACETAMINOPHEN 325 MG TABLET PO PRN (20:37)
[2016-09-30] MEDS: ATORVASTATIN CALCIUM 10 MG TABLET PO SCH (21:53)
[2016-09-30] MEDS: GABAPENTIN 300 MG CAPSULE PO SCH (21:55)
[2016-09-30] MEDS ORDERED: WARFARIN SODIUM 4 MG TABLET PO SCH (22:00)
[2016-09-30] MEDS ORDERED: LEVOFLOXACIN 500 MG/D5W RTU 500 MG/100 ML RTUPB IV SCH (22:00)
[2016-09-30] MEDS ORDERED: ENOXAPARIN SODIUM INJ 30 MG/0.3 ML DISP.SYRIN SUBCUT SCH (22:00)
[2016-09-30] MEDS: VANCOMYCIN HCL 1,250 MG in DEXTROSE 5%-WATER 250 ML IV SCH (23:29)
[2016-10-01 05:55] LABS: ANION GAP 10 (5-19); BLOOD UREA NITROGEN 25 mg/dL (7-20); CARBON DIOXIDE 28 mmol/L (22-30); CHLORIDE 90 mmol/L (98-107); CREATININE RESULT 1.03 mg/dL (0.52-1.25); Direct HDL 22 mg/dL (>40); GLUCOSE 91 mg/dL (75-110); HEMATOCRIT 36.4 % (37.9-51.0); HEMOGLOBIN 12.3 g/dL (13.5-17.0); HGB HCT DIFFERENCE 0.5; MEAN CORPUSCULAR HEMOGLOBIN 33.4 pg (27.0-33.4); MEAN CORPUSCULAR HGB CONC 33.8 g/dL (32.0-36.0); MEAN CORPUSCULAR VOLUME 99 fl (80-97); RED BLOOD COUNT 3.69 10^6/uL (4.35-5.55); RED CELL DISTRIBUTION WIDTH 16.3 % (11.5-14.0); TRIGLYCERIDES 147 mg/dL (<150); WHITE BLOOD COUNT 14.9 10^3/uL (4.0-10.5)
[2016-10-01] MEDS ORDERED: DILTIAZEM HCL 60 MG TABLET PO SCH (06:00)
[2016-10-01 06:06] LABS: DIRECT LDL 72 mg/dL (<100)
[2016-10-01 06:23] LABS: BAND NEUTROPHILS % (MANUAL) 3 % (3-5); BASOPHILS % (MANUAL) 0 % (0-2); EOSINOPHILS % (MANUAL) 0 % (0-6); LYMPHOCYTES % (MANUAL) 12 % (13-45); TOTAL CELLS COUNTED 100
[2016-10-01 06:26] LABS: ANISOCYTOSIS 1+; BURR CELLS SLIGHT; OVALOCYTES SLIGHT; POIKILOCYTOSIS SLIGHT; TOXIC GRANULATION 1+; TOXIC VACUOLATION PRESENT
[2016-10-01] MEDS: POTASSIUM CHLORIDE 20 MEQ/50 ML RTU IV SCH ×2 (08:26→12:32)
[2016-10-01] MEDS: ACETAMINOPHEN 325 MG TABLET PO PRN (08:39)
[2016-10-01] MEDS: METOPROLOL TARTRATE 50 MG TABLET PO SCH ×2 (12:29→22:22)
[2016-10-01] MEDS: FUROSEMIDE 20 MG TABLET PO SCH (12:30)
[2016-10-01] MEDS: PREDNISONE 10 MG TABLET PO SCH (12:30)
[2016-10-01] MEDS: LANSOPRAZOLE 30 MG TAB.RAP.DR PO SCH (12:31)
[2016-10-01] MEDS: DUTASTERIDE 0.5 MG CAPSULE PO SCH (12:31)
[2016-10-01] MEDS: ALLOPURINOL 100 MG TABLET PO SCH (12:31)
[2016-10-01] MEDS: CITALOPRAM HYDROBROMIDE 20 MG TABLET PO SCH (12:31)
[2016-10-01] MEDS ORDERED: PENICILLIN V POTASSIUM 500 MG TABLET PO ONE (13:00)
[2016-10-01] MEDS: VANCOMYCIN HCL 1,250 MG in DEXTROSE 5%-WATER 250 ML IV SCH ×2 (13:22→22:24)
--- NOTE | 2016-10-01 13:32 | PDOC PROGRESS REPORT ---
Subjective Progress Note for:: 10/01/16 Subjective:: He is feeling better. His kidney function is back to normal. His potassium was 3.0 and he was given KCL 20 ME IVx2 doses; added kCL 20 MEQ qd po. His blood culture showed Gram positive cocci and we added vancomycin. His urine culture showed E.Coli and we D/C Levaquin and switched him to Augmentin based on sensitivity.Discussed with pharmacist and she said pt has been taking penicillins with no adverse reactions. He has been weaned off Cardizem drip and we decreased Cardizem to 60 mg qd po due to relative hypotension and added parameters. We will still monitor him over the weekend. Physical Exam Vital Signs: Temp Pulse Resp BP Pulse Ox 99.1 F 89 18 96/51 L 99 10/01/16 07:31 10/01/16 07:31 10/01/16 07:31 10/01/16 07:31 10/01/16 07:31 Intake & Output 09/30/16 10/01/16 10/02/16 06:59 06:59 06:59 Intake Total 363 3516 Output Total 400 2025 Balance -37 1491 Weight 124.8 kg 123.5 kg General appearance: PRESENT: no acute distress, cooperative, well-developed, well-nourished Head exam: PRESENT: atraumatic, normocephalic Eye exam: PRESENT: PERRLA Ear exam: PRESENT: normal external ear exam, TM's normal bilaterally Mouth exam: PRESENT: neck supple, tongue midline Neck exam: PRESENT: full ROM Respiratory exam: PRESENT: clear to auscultation ton, symmetrical Cardiovascular exam: PRESENT: irregular rhythm, +S1, +S2 Pulses: PRESENT: +2 pedal pulses bilateral GI/Abdominal exam: PRESENT: normal bowel sounds, soft Rectal exam: PRESENT: deferred Extremities exam: PRESENT: full ROM Musculoskeletal exam: PRESENT: full ROM Neurological exam: PRESENT: alert, awake, oriented to person, oriented to place , oriented to time Psychiatric exam: PRESENT: normal mood Results Laboratory Results: 10/01/16 04:59 10/01/16 04:59 10/01/16 10/01/16 04:59 04:59 WBC 14.9 H RBC 3.69 L Hgb 12.3 L Hct 36.4 L MCV 99 H MCH 33.4 MCHC 33.8 RDW 16.3 H Plt Count 211 Seg Neutrophils % Not Reportable Lymphocytes % Not Reportable Monocytes % Not Reportable Eosinophils % Not Reportable Basophils % Not Reportable Absolute Neutrophils Not Reportable Absolute Lymphocytes Not Reportable Absolute Monocytes Not Reportable Absolute Eosinophils Not Reportable Absolute Basophils Not Reportable Sodium 128.0 L Potassium 3.0 L* Chloride 90 L Carbon Dioxide 28 Anion Gap 10 BUN 25 H Creatinine 1.03 Est GFR ( Amer) > 60 Est GFR (Non-Af Amer) > 60 Glucose 91 Calcium 9.0 Triglycerides 147 Cholesterol 141.30 LDL Cholesterol Direct 72 VLDL Cholesterol 29.0 HDL Cholesterol 22 L Impressions: Abdomen/Pelvis CT 09/29/16 19:23 IMPRESSION: New wall thickening of the bladder with intramural-intraluminal gas present at the anterior-superior bladder wall suggesting acute infectious process. There may be a patent urachus present. Consider urology consultation and follow-up. Assessment & Plan - Diagnosis (1) Atrial fibrillation with rapid ventricular response Is this a current diagnosis for this admission?: Yes Plan: Ct with Metoprolol 500 mg BID PO; Decrease Cardizem to 60 mg qd po. Hold warfarin due to persistent hematuria. (2) Urinary tract infection Qualifiers: Urinary tract infection type: acute cystitis Is this a current diagnosis for this admission?: Yes Plan: This is due to Gram positive cocci and E.coli. Ct with Vancomycin IV as per [facility] protocol; Augmentin 500/125 1 tablet q8h po;Tyenol 650 mg q6h po prn. (3) OMAR (acute kidney injury) Is this a current diagnosis for this admission?: Yes Plan: Ct with IV Fluids normal saline at 75 cc/hour cautiously due to hx of CHF. Strict input/output chart; Daily weight;Avoid nephrotoxics; monitor chemistries daily. (4) Hyponatremia Is this a current diagnosis for this admission?: Yes Plan: Ct with IV fluids normal saline at 75 cc/hr; Monitor chemistries daily. (5) HTN (hypertension) Qualifiers: Hypertension type: essential hypertension Qualified Code(s): I10 - Essential (primary) hypertension Is this a current diagnosis for this admission?: Yes Plan: Ct with Metoprolol 50 mg BID po; 2 G sodium diet. (6) Hyperlipemia Qualifiers: Hyperlipidemia type: unspecified Qualified Code(s): E78.5 - Hyperlipidemia , unspecified Is this a current diagnosis for this admission?: Yes Plan: Ct with Atorvastatin 10 mg qhs po; 200 mg cholesterol diet. (7) Chronic diastolic CHF (congestive heart failure) Is this a current diagnosis for this admission?: Yes Plan: We will decrease Lasix to 20mg qd po due to acute kidney injury; D/C Metolazone 5 mg qd po; Restart KCL 20 MEQ qd po since his potassium went down to 3.0; monitor chemistries daily.Daily weight; strict input/output chart. (8) Rheumatoid arthritis Qualifiers: Rheumatoid arthritis location: unspecified site Is this a current diagnosis for this admission?: Yes Plan: CT with Methotrexate 10 mg po on mondays; Prednisone 10 mg qd po. (9) Neuropathy Is this a current diagnosis for this admission?: Yes Plan: Ct with Gabapentin 300 mg qhs po. (10) BPH (benign prostatic hyperplasia) Qualifiers: Lower urinary tract symptom detail: unspecified Is this a current diagnosis for this admission?: Yes Plan: Ct with Avodart 0.5 mg qd po; Rapaflo 4mg qd po. (11) Reflux esophagitis Is this a current diagnosis for this admission?: Yes Plan: Ct with Prevacid 30 mg qd po since we do not have Omeprazole in our formulary. (12) Gout Qualifiers: Gout site: unspecified site Is this a current diagnosis for this admission?: Yes Plan: We will decrease Allopurinol to 100 mg qd po due to acute kidney injury. (13) Hypokalemia Is this a current diagnosis for this admission?: Yes Plan: He was given KCL 20 MEQ IVx2 doses. Add KCL 20 MEQ daily po. Monitor chemistries daily. (14) DVT prophylaxis Is this a current diagnosis for this admission?: Yes Plan: Ct with Lovenox 30 mg qd subcut; SCD.
[2016-10-01] MEDS: AMOXICILLIN TR/POT CLAVULANATE 500-125 MG TAB PO SCH ×2 (13:40→22:21)
[2016-10-01] MEDS ORDERED: PENICILLIN V POTASSIUM 500 MG TABLET PO SCH (18:00)
[2016-10-01] MEDS: GABAPENTIN 300 MG CAPSULE PO SCH (22:22)
[2016-10-01] MEDS: ATORVASTATIN CALCIUM 10 MG TABLET PO SCH (22:22)
[2016-10-01] MEDS: ENOXAPARIN SODIUM INJ 40 MG/0.4 ML DISP.SYRIN SUBCUT SCH (22:22)
[2016-10-01] MEDS: NORMAL SALINE 1000 ML 1,000 ML IV PRN (23:12)
[2016-10-02 01:53] LABS: AMORPHOUS SEDIMENT,URINE TRACE /HPF; APPEARANCE,URINE CLEAR; BILIRUBIN,URINE NEGATIVE (NEGATIVE); GLUCOSE, URINE NEGATIVE (NEGATIVE); KETONES,URINE NEGATIVE (NEGATIVE); LEUKOCYTE ESTERASE,URINE MODERATE (NEGATIVE); NITRITE,URINE NEGATIVE (NEGATIVE); PROTEIN,URINE NEGATIVE (NEGATIVE); URINE SPECIFIC GRAVITY 1.006
[2016-10-02 05:10] LABS: HEMATOCRIT 34.4 % (37.9-51.0); HEMOGLOBIN 11.8 g/dL (13.5-17.0); MEAN CORPUSCULAR HEMOGLOBIN 33.4 pg (27.0-33.4); MEAN CORPUSCULAR HGB CONC 34.3 g/dL (32.0-36.0); MEAN CORPUSCULAR VOLUME 97 fl (80-97); RED BLOOD COUNT 3.54 10^6/uL (4.35-5.55); RED CELL DISTRIBUTION WIDTH 16.7 % (11.5-14.0); WHITE BLOOD COUNT 12.8 10^3/uL (4.0-10.5)
[2016-10-02 05:21] LABS: ALANINE AMINOTRANSFERASE 100 U/L (21-72); ALBUMIN 2.7 g/dL (3.5-5.0); ALKALINE PHOSPHATASE 206 U/L (38-126); ANION GAP 11 (5-19); ASPARTATE AMINO TRANSFERASE 118 U/L (17-59); BILIRUBIN,DIRECT 0.7 mg/dL (0.0-0.4); BLOOD UREA NITROGEN 19 mg/dL (7-20); CALCIUM 8.2 mg/dL (8.4-10.2); CARBON DIOXIDE 26 mmol/L (22-30); CHLORIDE 92 mmol/L (98-107); CREATININE RESULT 0.86 mg/dL (0.52-1.25); GLUCOSE 94 mg/dL (75-110); POTASSIUM 3.1 mmol/L (3.6-5.0); SODIUM 129.3 mmol/L (137-145); TOTAL PROTEIN 5.4 g/dL (6.3-8.2)
[2016-10-02 05:33] LABS: BASOPHILS % (MANUAL) 0 % (0-2); EOSINOPHILS % (MANUAL) 1 % (0-6); LYMPHOCYTES % (MANUAL) 4 % (13-45); TOTAL CELLS COUNTED 100
[2016-10-02 05:38] LABS: ANISOCYTOSIS 1+; BAND NEUTROPHILS % (MANUAL) 10 % (3-5); TOXIC GRANULATION 1+
[2016-10-02] MEDS: AMOXICILLIN TR/POT CLAVULANATE 500-125 MG TAB PO SCH ×3 (06:07→21:49)
[2016-10-02 10:13] LABS: CREATININE RESULT 0.84 mg/dL (0.52-1.25)
[2016-10-02] MEDS: CITALOPRAM HYDROBROMIDE 20 MG TABLET PO SCH (10:16)
[2016-10-02] MEDS: ALLOPURINOL 100 MG TABLET PO SCH (10:16)
[2016-10-02] MEDS: LANSOPRAZOLE 30 MG TAB.RAP.DR PO SCH (10:16)
[2016-10-02] MEDS: DUTASTERIDE 0.5 MG CAPSULE PO SCH (10:16)
[2016-10-02] MEDS: POTASSIUM CHLORIDE 10 MEQ TABLET.SA PO SCH (10:16)
[2016-10-02] MEDS: FUROSEMIDE 20 MG TABLET PO SCH (10:17)
[2016-10-02] MEDS: METOPROLOL TARTRATE 50 MG TABLET PO SCH ×2 (10:17→21:50)
[2016-10-02] MEDS: DILTIAZEM HCL 60 MG TABLET PO SCH (10:17)
[2016-10-02] MEDS: PREDNISONE 10 MG TABLET PO SCH (10:17)
[2016-10-02] MEDS: VANCOMYCIN HCL 1,250 MG in DEXTROSE 5%-WATER 250 ML IV SCH ×2 (10:20→21:50)
--- NOTE | 2016-10-02 11:08 | PDOC PROGRESS REPORT ---
Subjective Progress Note for:: 10/02/16 Subjective:: Still having hematuria but urine is clear as per staff. No reported temperature spikes, respiratory distress, nausea or vomiting, abdominal pain nor diarrhea. Patient denies any shortness of breath nor PND. No pain or discomfort at this time. Physical Exam Vital Signs: Temp Pulse Resp BP Pulse Ox 97.5 F 71 20 116/77 100 10/02/16 07:04 10/02/16 07:04 10/02/16 07:04 10/02/16 07:04 10/02/16 07:04 Intake & Output 10/01/16 10/02/16 10/03/16 06:59 06:59 06:59 Intake Total 3516 2984 Output Total 2025 Balance 1491 2984 Weight 123.5 kg General appearance: PRESENT: no acute distress, cooperative, obese Head exam: PRESENT: normocephalic Eye exam: PRESENT: EOMI Mouth exam: PRESENT: moist, neck supple Neck exam: ABSENT: JVD Respiratory exam: PRESENT: clear to auscultation ton. ABSENT: rhonchi, wheezes Cardiovascular exam: PRESENT: irregular rhythm. ABSENT: gallop GI/Abdominal exam: PRESENT: soft. ABSENT: distended, tenderness Neurological exam: PRESENT: alert, awake, oriented to situation Skin exam: PRESENT: dry, warm. ABSENT: cyanosis Results Laboratory Results: 10/02/16 04:13 10/02/16 09:51 10/02/16 10/02/16 10/02/16 01:00 04:13 04:13 WBC 12.8 H RBC 3.54 L Hgb 11.8 L Hct 34.4 L MCV 97 MCH 33.4 MCHC 34.3 RDW 16.7 H Plt Count 246 Seg Neutrophils % Not Reportable Lymphocytes % Not Reportable Monocytes % Not Reportable Eosinophils % Not Reportable Basophils % Not Reportable Absolute Neutrophils Not Reportable Absolute Lymphocytes Not Reportable Absolute Monocytes Not Reportable Absolute Eosinophils Not Reportable Absolute Basophils Not Reportable Sodium 129.3 L Potassium 3.1 L Chloride 92 L Carbon Dioxide 26 Anion Gap 11 BUN 19 Creatinine 0.86 Est GFR ( Amer) > 60 Est GFR (Non-Af Amer) > 60 Glucose 94 Calcium 8.2 L Total Bilirubin 1.0 AST 118 H ALT 100 H Alkaline Phosphatase 206 H Total Protein 5.4 L Albumin 2.7 L Urine Color YELLOW Urine Appearance CLEAR Urine pH 6.0 Ur Specific [place] 1.006 Urine Protein NEGATIVE Urine Glucose (UA) NEGATIVE Urine Ketones NEGATIVE Urine Blood LARGE H Urine Nitrite NEGATIVE Ur Leukocyte Esterase MODERATE H Urine WBC (Auto) 35 Urine RBC (Auto) 163 10/02/16 09:51 WBC RBC Hgb Hct MCV MCH MCHC RDW Plt Count Seg Neutrophils % Lymphocytes % Monocytes % Eosinophils % Basophils % Absolute Neutrophils Absolute Lymphocytes Absolute Monocytes Absolute Eosinophils Absolute Basophils Sodium Potassium Chloride Carbon Dioxide Anion Gap BUN Creatinine 0.84 Est GFR ( Amer) > 60 Est GFR (Non-Af Amer) > 60 Glucose Calcium Total Bilirubin AST ALT Alkaline Phosphatase Total Protein Albumin Urine Color Urine Appearance Urine pH Ur Specific [place] Urine Protein Urine Glucose (UA) Urine Ketones Urine Blood Urine Nitrite Ur Leukocyte Esterase Urine WBC (Auto) Urine RBC (Auto) Impressions: Abdomen/Pelvis CT 09/29/16 19:23 IMPRESSION: New wall thickening of the bladder with intramural-intraluminal gas present at the anterior-superior bladder wall suggesting acute infectious process. There may be a patent urachus present. Consider urology consultation and follow-up. Assessment & Plan - Diagnosis (1) Sepsis Qualifiers: Sepsis type: sepsis due to unspecified organism Qualified Code(s): A41.9 - Sepsis, unspecified organism Is this a current diagnosis for this admission?: Yes (2) OMAR (acute kidney injury) Is this a current diagnosis for this admission?: Yes (3) Atrial fibrillation with rapid ventricular response Is this a current diagnosis for this admission?: Yes (4) Hypokalemia Is this a current diagnosis for this admission?: Yes (5) Hyponatremia Is this a current diagnosis for this admission?: Yes (6) Urinary tract infection Qualifiers: Urinary tract infection type: acute cystitis Is this a current diagnosis for this admission?: Yes (7) Anemia of chronic disease Is this a current diagnosis for this admission?: Yes (8) BPH (benign prostatic hyperplasia) Qualifiers: Lower urinary tract symptom detail: unspecified Is this a current diagnosis for this admission?: Yes (9) Chronic diastolic CHF (congestive heart failure) Is this a current diagnosis for this admission?: Yes (10) Gout Qualifiers: Gout site: unspecified site Is this a current diagnosis for this admission?: Yes (11) Reflux esophagitis Is this a current diagnosis for this admission?: Yes (12) Rheumatoid arthritis Qualifiers: Rheumatoid arthritis location: unspecified site Is this a current diagnosis for this admission?: Yes (13) HTN (hypertension) Qualifiers: Hypertension type: essential hypertension Qualified Code(s): I10 - Essential (primary) hypertension Is this a current diagnosis for this admission?: Yes (14) Hyperlipemia Qualifiers: Hyperlipidemia type: unspecified Qualified Code(s): E78.5 - Hyperlipidemia , unspecified Is this a current diagnosis for this admission?: Yes - Time Time Spent with patient: 25-34 minutes - Plan Summary Plan Summary: Continue current antibiotics. Follow cultures. We will continue to hold warfarin due to hematuria. We will discontinue cholesterol medication due to increasing liver function. We will recheck levels in the morning. Out of bed with physical therapy. Re-check electrolytes in the morning.
[2016-10-02] MEDS: NORMAL SALINE 1000 ML 1,000 ML IV PRN (18:30)
[2016-10-02] MEDS: ACETAMINOPHEN 325 MG TABLET PO PRN (20:08)
[2016-10-02] MEDS: GABAPENTIN 300 MG CAPSULE PO SCH (21:50)
[2016-10-02] MEDS: ENOXAPARIN SODIUM INJ 40 MG/0.4 ML DISP.SYRIN SUBCUT SCH (21:50)
[2016-10-03] MEDS: AMOXICILLIN TR/POT CLAVULANATE 500-125 MG TAB PO SCH ×3 (05:21→21:29)
[2016-10-03 05:39] LABS: ALANINE AMINOTRANSFERASE 122 U/L (21-72); ALBUMIN 2.6 g/dL (3.5-5.0); ALKALINE PHOSPHATASE 226 U/L (38-126); ANION GAP 8 (5-19); ASPARTATE AMINO TRANSFERASE 154 U/L (17-59); BILIRUBIN,DIRECT 0.6 mg/dL (0.0-0.4); BILIRUBIN,TOTAL 0.7 mg/dL (0.2-1.3); BLOOD UREA NITROGEN 22 mg/dL (7-20); CALCIUM 8.4 mg/dL (8.4-10.2); CARBON DIOXIDE 27 mmol/L (22-30); CHLORIDE 95 mmol/L (98-107); CREATININE RESULT 0.76 mg/dL (0.52-1.25); GLUCOSE 101 mg/dL (75-110); POTASSIUM 3.4 mmol/L (3.6-5.0); SODIUM 129.7 mmol/L (137-145); TOTAL PROTEIN 5.1 g/dL (6.3-8.2)
[2016-10-03 05:50] LABS: HEMATOCRIT 34.5 % (37.9-51.0); HEMOGLOBIN 11.9 g/dL (13.5-17.0); HGB HCT DIFFERENCE 1.2; MEAN CORPUSCULAR HGB CONC 34.6 g/dL (32.0-36.0); MEAN CORPUSCULAR VOLUME 98 fl (80-97); RED BLOOD COUNT 3.51 10^6/uL (4.35-5.55); RED CELL DISTRIBUTION WIDTH 16.7 % (11.5-14.0); WHITE BLOOD COUNT 10.6 10^3/uL (4.0-10.5)
[2016-10-03 06:01] LABS: ANISOCYTOSIS 1+; BAND NEUTROPHILS % (MANUAL) 3 % (3-5); BASOPHILS % (MANUAL) 0 % (0-2); EOSINOPHILS % (MANUAL) 0 % (0-6); HYPOCHROMASIA SLIGHT; LYMPHOCYTES % (MANUAL) 6 % (13-45); POLYCHROMASIA SLIGHT; TOTAL CELLS COUNTED 100; TOXIC GRANULATION SLIGHT
[2016-10-03 06:02] LABS: PLATELET CLUMPS PRESENT
--- NOTE | 2016-10-03 09:50 | PDOC PROGRESS REPORT ---
Subjective Progress Note for:: 10/03/16 Subjective:: Overall the patient is improving, however he feels lightheaded intermittently. Hematuria resolved. No reported temperature spikes, nausea or vomiting, diarrhea chills or fever. No reported tachycardia or hypotension. Denies any PND orthopnea nor shortness of breath. Physical Exam Vital Signs: Temp Pulse Resp BP Pulse Ox 97.6 F 85 20 122/83 97 10/03/16 07:08 10/03/16 07:08 10/03/16 07:08 10/03/16 07:08 10/03/16 07:08 Intake & Output 10/02/16 10/03/16 10/04/16 06:59 06:59 06:59 Intake Total 2984 3347 Output Total 1475 Balance 2984 1872 Weight 123.3 kg General appearance: PRESENT: no acute distress, cooperative Head exam: PRESENT: normocephalic Eye exam: PRESENT: EOMI Mouth exam: PRESENT: moist, neck supple Neck exam: ABSENT: JVD Respiratory exam: PRESENT: clear to auscultation ton, unlabored. ABSENT: rhonchi, wheezes Cardiovascular exam: PRESENT: irregular rhythm. ABSENT: gallop GI/Abdominal exam: PRESENT: soft. ABSENT: distended, tenderness Extremities exam: PRESENT: other - Trace pretibial edema Neurological exam: PRESENT: alert, awake, oriented to situation Skin exam: PRESENT: dry, warm. ABSENT: cyanosis Results Laboratory Results: 10/03/16 04:35 10/03/16 04:35 10/02/16 10/03/16 10/03/16 09:51 04:35 04:35 WBC 10.6 H RBC 3.51 L Hgb 11.9 L Hct 34.5 L MCV 98 H MCH 34.0 H MCHC 34.6 RDW 16.7 H Plt Count 239 Seg Neutrophils % Not Reportable Lymphocytes % Not Reportable Monocytes % Not Reportable Eosinophils % Not Reportable Basophils % Not Reportable Absolute Neutrophils Not Reportable Absolute Lymphocytes Not Reportable Absolute Monocytes Not Reportable Absolute Eosinophils Not Reportable Absolute Basophils Not Reportable Sodium 129.7 L Potassium 3.4 L Chloride 95 L Carbon Dioxide 27 Anion Gap 8 BUN 22 H Creatinine 0.84 0.76 Est GFR ( Amer) > 60 > 60 Est GFR (Non-Af Amer) > 60 > 60 Glucose 101 Calcium 8.4 Total Bilirubin 0.7 AST 154 H ALT 122 H Alkaline Phosphatase 226 H Total Protein 5.1 L Albumin 2.6 L 10/02/16 05:15 Nasophary (Mrs[facility] Only) MRSA Surveillance Culture - Final NO MRSA RECOVERED Impressions: Abdomen/Pelvis CT 09/29/16 19:23 IMPRESSION: New wall thickening of the bladder with intramural-intraluminal gas present at the anterior-superior bladder wall suggesting acute infectious process. There may be a patent urachus present. Consider urology consultation and follow-up. Assessment & Plan - Diagnosis (1) Sepsis Qualifiers: Sepsis type: sepsis due to unspecified organism Qualified Code(s): A41.9 - Sepsis, unspecified organism Is this a current diagnosis for this admission?: Yes (2) OMAR (acute kidney injury) Is this a current diagnosis for this admission?: Yes (3) Atrial fibrillation with rapid ventricular response Is this a current diagnosis for this admission?: Yes (4) Hypokalemia Is this a current diagnosis for this admission?: Yes (5) Hyponatremia Is this a current diagnosis for this admission?: Yes (6) Urinary tract infection Qualifiers: Urinary tract infection type: acute cystitis Is this a current diagnosis for this admission?: Yes (7) Anemia of chronic disease Is this a current diagnosis for this admission?: Yes (8) BPH (benign prostatic hyperplasia) Qualifiers: Lower urinary tract symptom detail: unspecified Is this a current diagnosis for this admission?: Yes (9) Chronic diastolic CHF (congestive heart failure) Is this a current diagnosis for this admission?: Yes (10) Gout Qualifiers: Gout site: unspecified site Is this a current diagnosis for this admission?: Yes (11) Reflux esophagitis Is this a current diagnosis for this admission?: Yes (12) Rheumatoid arthritis Qualifiers: Rheumatoid arthritis location: unspecified site Is this a current diagnosis for this admission?: Yes (13) HTN (hypertension) Qualifiers: Hypertension type: essential hypertension Qualified Code(s): I10 - Essential (primary) hypertension Is this a current diagnosis for this admission?: Yes (14) Hyperlipemia Qualifiers: Hyperlipidemia type: unspecified Qualified Code(s): E78.5 - Hyperlipidemia , unspecified Is this a current diagnosis for this admission?: Yes - Time Time Spent with patient: 25-34 minutes - Plan Summary Plan Summary: Patient's laboratory has been reviewed. Staphylococcus epidermidis although in both bottles were present likely a contamination. It is however sensitive to Augmentin. We will therefore keep the patient on Augmentin and discontinue the vancomycin. We will begin physical therapy. Replace potassium and recheck level in the morning. We will likewise resume warfarin and monitor PT/INR. Dr. Thakkar will be back in the morning and assume care.
[2016-10-03] MEDS ORDERED: POTASSIUM CHLORIDE 10 MEQ TABLET.SA PO ONE ×2 (10:00→14:00)
[2016-10-03 10:15] LABS: PROTHROMBIN TIME 13.9 SEC (11.4-15.4)
[2016-10-03] MEDS: POTASSIUM CHLORIDE 10 MEQ TABLET.SA PO SCH (11:08)
[2016-10-03] MEDS: PREDNISONE 10 MG TABLET PO SCH (11:09)
[2016-10-03] MEDS: LANSOPRAZOLE 30 MG TAB.RAP.DR PO SCH (11:09)
[2016-10-03] MEDS: ALLOPURINOL 100 MG TABLET PO SCH (11:09)
[2016-10-03] MEDS: CITALOPRAM HYDROBROMIDE 20 MG TABLET PO SCH (11:09)
[2016-10-03] MEDS: METOPROLOL TARTRATE 50 MG TABLET PO SCH ×2 (11:10→21:29)
[2016-10-03] MEDS: FUROSEMIDE 20 MG TABLET PO SCH (11:10)
[2016-10-03] MEDS: DUTASTERIDE 0.5 MG CAPSULE PO SCH (11:10)
[2016-10-03] MEDS: DILTIAZEM HCL 60 MG TABLET PO SCH (11:10)
[2016-10-03] MEDS: NORMAL SALINE 1000 ML 1,000 ML IV PRN (11:15)
[2016-10-03] MEDS: ACETAMINOPHEN 325 MG TABLET PO PRN ×2 (13:50→21:30)
[2016-10-03] MEDS: GABAPENTIN 300 MG CAPSULE PO SCH (21:29)
[2016-10-03] MEDS: WARFARIN SODIUM 4 MG TABLET PO SCH (21:29)
[2016-10-04 04:45] LABS: HEMATOCRIT 34.9 % (37.9-51.0); HEMOGLOBIN 11.7 g/dL (13.5-17.0); HGB HCT DIFFERENCE 0.2; MEAN CORPUSCULAR HEMOGLOBIN 33.6 pg (27.0-33.4); MEAN CORPUSCULAR HGB CONC 33.5 g/dL (32.0-36.0); MEAN CORPUSCULAR VOLUME 100 fl (80-97); RED BLOOD COUNT 3.49 10^6/uL (4.35-5.55); RED CELL DISTRIBUTION WIDTH 16.7 % (11.5-14.0); WHITE BLOOD COUNT 13.3 10^3/uL (4.0-10.5)
[2016-10-04 05:02] LABS: ALANINE AMINOTRANSFERASE 102 U/L (21-72); ALBUMIN 2.6 g/dL (3.5-5.0); ALKALINE PHOSPHATASE 209 U/L (38-126); ANION GAP 10 (5-19); ASPARTATE AMINO TRANSFERASE 96 U/L (17-59); BILIRUBIN,DIRECT 0.5 mg/dL (0.0-0.4); BILIRUBIN,TOTAL 0.6 mg/dL (0.2-1.3); BLOOD UREA NITROGEN 27 mg/dL (7-20); CALCIUM 8.4 mg/dL (8.4-10.2); CARBON DIOXIDE 26 mmol/L (22-30); CHLORIDE 97 mmol/L (98-107); CREATININE RESULT 0.87 mg/dL (0.52-1.25); GLUCOSE 92 mg/dL (75-110); POTASSIUM 3.5 mmol/L (3.6-5.0); SODIUM 133.3 mmol/L (137-145); TOTAL PROTEIN 5.1 g/dL (6.3-8.2)
[2016-10-04 05:12] LABS: PROTHROMBIN TIME 14.3 SEC (11.4-15.4)
[2016-10-04] MEDS: NORMAL SALINE 1000 ML 1,000 ML IV PRN (05:40)
[2016-10-04] MEDS: AMOXICILLIN TR/POT CLAVULANATE 500-125 MG TAB PO SCH ×3 (05:40→21:25)
[2016-10-04] MEDS ORDERED: METHOTREXATE SODIUM 2.5 MG TABLET PO SCH (10:00)
[2016-10-04] MEDS: METOPROLOL TARTRATE 50 MG TABLET PO SCH ×2 (10:46→21:25)
[2016-10-04] MEDS: ACETAMINOPHEN 325 MG TABLET PO PRN (10:46)
[2016-10-04] MEDS: LANSOPRAZOLE 30 MG TAB.RAP.DR PO SCH (10:47)
[2016-10-04] MEDS: DUTASTERIDE 0.5 MG CAPSULE PO SCH (10:47)
[2016-10-04] MEDS: PREDNISONE 10 MG TABLET PO SCH (10:47)
[2016-10-04] MEDS: ALLOPURINOL 100 MG TABLET PO SCH (10:47)
[2016-10-04] MEDS: FUROSEMIDE 20 MG TABLET PO SCH (10:47)
[2016-10-04] MEDS: CITALOPRAM HYDROBROMIDE 20 MG TABLET PO SCH (10:47)
[2016-10-04] MEDS: POTASSIUM CHLORIDE 10 MEQ TABLET.SA PO SCH (10:48)
--- NOTE | 2016-10-04 16:06 | PDOC PROGRESS REPORT ---
Subjective Progress Note for:: 10/04/16 Subjective:: He is doing much better and potassium and sodium and getting better. He was no longer having hematuria and warfarin was restarted. WE will monior him for 1-2 more days at [facility]. Physical Exam Vital Signs: Temp Pulse Resp BP Pulse Ox 97.4 F 64 20 135/83 H 99 10/04/16 12:00 10/04/16 12:00 10/04/16 12:00 10/04/16 12:00 10/04/16 12:00 Intake & Output 10/03/16 10/04/16 10/05/16 06:59 06:59 06:59 Intake Total 3347 2483 459 Output Total 1475 1605 650 Balance 1872 878 -191 Weight 123.3 kg 125.7 kg General appearance: PRESENT: no acute distress, cooperative, well-developed, well-nourished Head exam: PRESENT: atraumatic, normocephalic Eye exam: PRESENT: EOMI, PERRLA Ear exam: PRESENT: normal external ear exam, TM's normal bilaterally Mouth exam: PRESENT: moist, neck supple, tongue midline Neck exam: PRESENT: full ROM Respiratory exam: PRESENT: decreased breath sounds, symmetrical Cardiovascular exam: PRESENT: irregular rhythm, +S1, +S2 Pulses: PRESENT: +2 pedal pulses bilateral GI/Abdominal exam: PRESENT: normal bowel sounds, soft Rectal exam: PRESENT: deferred Extremities exam: PRESENT: full ROM Musculoskeletal exam: PRESENT: full ROM Neurological exam: PRESENT: alert, awake, oriented to person, oriented to place , oriented to time Psychiatric exam: PRESENT: normal mood Results Laboratory Results: 10/04/16 03:52 10/04/16 03:52 10/04/16 10/04/16 03:52 03:52 WBC 13.3 H RBC 3.49 L Hgb 11.7 L Hct 34.9 L MCV 100 H MCH 33.6 H MCHC 33.5 RDW 16.7 H Plt Count 296 Sodium 133.3 L Potassium 3.5 L Chloride 97 L Carbon Dioxide 26 Anion Gap 10 BUN 27 H Creatinine 0.87 Est GFR ( Amer) > 60 Est GFR (Non-Af Amer) > 60 Glucose 92 Calcium 8.4 Total Bilirubin 0.6 AST 96 H ALT 102 H Alkaline Phosphatase 209 H Total Protein 5.1 L Albumin 2.6 L Impressions: Abdomen/Pelvis CT 09/29/16 19:23 IMPRESSION: New wall thickening of the bladder with intramural-intraluminal gas present at the anterior-superior bladder wall suggesting acute infectious process. There may be a patent urachus present. Consider urology consultation and follow-up. Assessment & Plan - Diagnosis (1) Atrial fibrillation with rapid ventricular response Is this a current diagnosis for this admission?: Yes Plan: Ct with Metoprolol 500 mg BID PO; Ct with Warfarin 4 mg qhs po; F/U PT/INR as per protocol. (2) Urinary tract infection Qualifiers: Urinary tract infection type: acute cystitis Is this a current diagnosis for this admission?: Yes Plan: This is due to E.coli and Staph. epidermidis- possibly contaminant. Ct with Augmentin 500/125 1 tablet q8h po;Tyenol 650 mg q6h po prn. (3) OMAR (acute kidney injury) Is this a current diagnosis for this admission?: Yes Plan: Ct with IV Fluids normal saline at 75 cc/hour cautiously due to hx of CHF. Strict input/output chart; Daily weight;Avoid nephrotoxics; monitor chemistries daily. (4) Hyponatremia Is this a current diagnosis for this admission?: Yes Plan: Ct with IV fluids normal saline at 75 cc/hr; Monitor chemistries daily. (5) HTN (hypertension) Qualifiers: Hypertension type: essential hypertension Qualified Code(s): I10 - Essential (primary) hypertension Is this a current diagnosis for this admission?: Yes Plan: Ct with Metoprolol 50 mg BID po; 2 g sodium diet. (6) Hyperlipemia Qualifiers: Hyperlipidemia type: unspecified Qualified Code(s): E78.5 - Hyperlipidemia , unspecified Is this a current diagnosis for this admission?: Yes Plan: Ct with Atorvastatin 10 mg qhs po; 200 mg cholesterol diet. (7) Chronic diastolic CHF (congestive heart failure) Is this a current diagnosis for this admission?: Yes Plan: We will decrease Lasix to 20mg qd po due to acute kidney injury; D/C Metolazone 5 mg qd po; Restart KCL 20 MEQ qd po since his potassium went down to 3.0; monitor chemistries daily.Daily weight; strict input/output chart. (8) Rheumatoid arthritis Qualifiers: Rheumatoid arthritis location: unspecified site Is this a current diagnosis for this admission?: Yes Plan: CT with Methotrexate 10 mg po on mondays; Prednisone 10 mg qd po. (9) Neuropathy Is this a current diagnosis for this admission?: Yes Plan: Ct with Gabapentin 300 mg qhs po. (10) BPH (benign prostatic hyperplasia) Qualifiers: Lower urinary tract symptom detail: unspecified Is this a current diagnosis for this admission?: Yes Plan: Ct with Avodart 0.5 mg qd po; Rapaflo 4mg qd po. (11) Reflux esophagitis Is this a current diagnosis for this admission?: Yes Plan: Ct with Prevacid 30 mg qd po since we do not have Omeprazole in our formulary. (12) Gout Qualifiers: Gout site: unspecified site Is this a current diagnosis for this admission?: Yes Plan: We will decrease Allopurinol to 100 mg qd po due to acute kidney injury. (13) Hypokalemia Is this a current diagnosis for this admission?: Yes Plan: He has been givn several doses of KCL [address] with KCL 20 MEQ daily po. Monitor chemistries daily. (14) DVT prophylaxis Is this a current diagnosis for this admission?: Yes Plan: Ct with Lovenox 30 mg qd subcut; SCD.
[2016-10-04 19:35] LABS: APPEARANCE,URINE SLIGHTLY-CLOUDY; BILIRUBIN,URINE NEGATIVE (NEGATIVE); GLUCOSE, URINE NEGATIVE (NEGATIVE); KETONES,URINE NEGATIVE (NEGATIVE); LEUKOCYTE ESTERASE,URINE LARGE (NEGATIVE); NITRITE,URINE NEGATIVE (NEGATIVE); PROTEIN,URINE NEGATIVE (NEGATIVE); UROBILINOGEN,URINE NEGATIVE mg/dL (<2.0)
[2016-10-04] MEDS: WARFARIN SODIUM 4 MG TABLET PO SCH (21:25)
[2016-10-04] MEDS: GABAPENTIN 300 MG CAPSULE PO SCH (21:25)
[2016-10-05] MEDS: AMOXICILLIN TR/POT CLAVULANATE 500-125 MG TAB PO SCH ×3 (05:03→21:57)
[2016-10-05 05:47] LABS: HEMOGLOBIN 11.7 g/dL (13.5-17.0); HGB HCT DIFFERENCE 0.1; MEAN CORPUSCULAR HEMOGLOBIN 33.2 pg (27.0-33.4); MEAN CORPUSCULAR HGB CONC 33.3 g/dL (32.0-36.0); MEAN CORPUSCULAR VOLUME 100 fl (80-97); PROTHROMBIN TIME 14.2 SEC (11.4-15.4); RED BLOOD COUNT 3.51 10^6/uL (4.35-5.55); WHITE BLOOD COUNT 13.6 10^3/uL (4.0-10.5)
[2016-10-05 05:55] LABS: ALANINE AMINOTRANSFERASE 95 U/L (21-72); ALBUMIN 2.7 g/dL (3.5-5.0); ALKALINE PHOSPHATASE 214 U/L (38-126); ANION GAP 10 (5-19); ASPARTATE AMINO TRANSFERASE 79 U/L (17-59); BILIRUBIN,DIRECT 0.5 mg/dL (0.0-0.4); BILIRUBIN,TOTAL 0.5 mg/dL (0.2-1.3); BLOOD UREA NITROGEN 25 mg/dL (7-20); CALCIUM 8.7 mg/dL (8.4-10.2); CARBON DIOXIDE 26 mmol/L (22-30); CHLORIDE 98 mmol/L (98-107); CREATININE RESULT 0.71 mg/dL (0.52-1.25); GLUCOSE 89 mg/dL (75-110); POTASSIUM 3.3 mmol/L (3.6-5.0); TOTAL PROTEIN 5.2 g/dL (6.3-8.2)
[2016-10-05 06:12] LABS: BASOPHILS % (MANUAL) 0 % (0-2); EOSINOPHILS % (MANUAL) 1 % (0-6); LYMPHOCYTES % (MANUAL) 13 % (13-45); TOTAL CELLS COUNTED 100
[2016-10-05 06:13] LABS: TOXIC GRANULATION SLIGHT
[2016-10-05 06:14] LABS: ANISOCYTOSIS 1+; OVALOCYTES SLIGHT; POIKILOCYTOSIS SLIGHT; SCHISTOCYTES SLIGHT; TEAR DROP CELLS SLIGHT
[2016-10-05] MEDS: DUTASTERIDE 0.5 MG CAPSULE PO SCH (10:17)
[2016-10-05] MEDS: ALLOPURINOL 100 MG TABLET PO SCH (10:17)
[2016-10-05] MEDS: CITALOPRAM HYDROBROMIDE 20 MG TABLET PO SCH (10:18)
[2016-10-05] MEDS: METOPROLOL TARTRATE 50 MG TABLET PO SCH ×2 (10:19→21:57)
[2016-10-05] MEDS: FUROSEMIDE 20 MG TABLET PO SCH (10:20)
[2016-10-05] MEDS: ACETAMINOPHEN 325 MG TABLET PO PRN (10:20)
[2016-10-05] MEDS: PREDNISONE 10 MG TABLET PO SCH (10:21)
[2016-10-05] MEDS: LANSOPRAZOLE 30 MG TAB.RAP.DR PO SCH (10:21)
[2016-10-05] MEDS: POTASSIUM CHLORIDE 10 MEQ TABLET.SA PO SCH (10:21)
[2016-10-05] MEDS ORDERED: POTASSIUM CHLORIDE 20 MEQ/15 ML UDCUP PO ONE (15:19)
[2016-10-05] MEDS ORDERED: POTASSI CL 20 MEQ/50 ML RIDER 20 MEQ/50 ML RTUPB IV ONE (15:19)
--- NOTE | 2016-10-05 15:26 | PDOC PROGRESS REPORT ---
Subjective Progress Note for:: 10/05/16 Subjective:: He is doing much better and potassium and sodium and getting better. He was no longer having hematuria and warfarin was restarted. His potassium was 3.3 and we will give him KCL 20 MEQ IVx1 and KCL 20 MEQ PO x1.Continue to monitor him at [facility] and for possible discharge home tomorrow with home health services. Physical Exam Vital Signs: Temp Pulse Resp BP Pulse Ox 97.5 F 37 L 19 116/63 95 10/05/16 12:06 10/05/16 12:06 10/05/16 12:06 10/05/16 12:06 10/05/16 12:06 Intake & Output 10/04/16 10/05/16 10/06/16 06:59 06:59 06:59 Intake Total 2483 2313 355 Output Total 1605 1425 450 Balance 878 888 -95 Weight 125.7 kg 125.4 kg 125.4 kg General appearance: PRESENT: no acute distress, cooperative, well-developed, well-nourished Head exam: PRESENT: atraumatic, normocephalic Eye exam: PRESENT: EOMI, PERRLA Ear exam: PRESENT: normal external ear exam, TM's normal bilaterally Mouth exam: PRESENT: moist, neck supple, tongue midline Neck exam: PRESENT: full ROM Respiratory exam: PRESENT: clear to auscultation ton, symmetrical Cardiovascular exam: PRESENT: +S1, +S2 Pulses: PRESENT: +2 pedal pulses bilateral GI/Abdominal exam: PRESENT: normal bowel sounds, soft Rectal exam: PRESENT: deferred Extremities exam: PRESENT: full ROM Musculoskeletal exam: PRESENT: full ROM Neurological exam: PRESENT: alert, awake, oriented to person, oriented to place , oriented to time Psychiatric exam: PRESENT: normal mood Results Laboratory Results: 10/05/16 04:55 10/05/16 04:55 10/04/16 10/05/16 10/05/16 18:18 00:10 04:55 WBC 13.6 H RBC 3.51 L Hgb 11.7 L Hct 35.0 L MCV 100 H MCH 33.2 MCHC 33.3 RDW 17.0 H Plt Count 322 Seg Neutrophils % Not Reportable Lymphocytes % Not Reportable Monocytes % Not Reportable Eosinophils % Not Reportable Basophils % Not Reportable Absolute Neutrophils Not Reportable Absolute Lymphocytes Not Reportable Absolute Monocytes Not Reportable Absolute Eosinophils Not Reportable Absolute Basophils Not Reportable Sodium Potassium Chloride Carbon Dioxide Anion Gap BUN Creatinine Est GFR ( Amer) Est GFR (Non-Af Amer) Glucose Calcium Total Bilirubin AST ALT Alkaline Phosphatase Total Protein Albumin Urine Color YELLOW Urine Appearance SLIGHTLY-CLOUDY Urine pH 6.0 Ur Specific [place] 1.010 Urine Protein NEGATIVE Urine Glucose (UA) NEGATIVE Urine Ketones NEGATIVE Urine Blood LARGE H Urine Nitrite NEGATIVE Ur Leukocyte Esterase LARGE H Urine WBC (Auto) 79 Urine RBC (Auto) 40 Stool Occult Blood NEGATIVE 10/05/16 04:55 WBC RBC Hgb Hct MCV MCH MCHC RDW Plt Count Seg Neutrophils % Lymphocytes % Monocytes % Eosinophils % Basophils % Absolute Neutrophils Absolute Lymphocytes Absolute Monocytes Absolute Eosinophils Absolute Basophils Sodium 134.0 L Potassium 3.3 L Chloride 98 Carbon Dioxide 26 Anion Gap 10 BUN 25 H Creatinine 0.71 Est GFR ( Amer) > 60 Est GFR (Non-Af Amer) > 60 Glucose 89 Calcium 8.7 Total Bilirubin 0.5 AST 79 H ALT 95 H Alkaline Phosphatase 214 H Total Protein 5.2 L Albumin 2.7 L Urine Color Urine Appearance Urine pH Ur Specific [place] Urine Protein Urine Glucose (UA) Urine Ketones Urine Blood Urine Nitrite Ur Leukocyte Esterase Urine WBC (Auto) Urine RBC (Auto) Stool Occult Blood 09/29/16 21:15 Blood Blood Culture - Final NO GROWTH IN 5 DAYS Impressions: Abdomen/Pelvis CT 09/29/16 19:23 IMPRESSION: New wall thickening of the bladder with intramural-intraluminal gas present at the anterior-superior bladder wall suggesting acute infectious process. There may be a patent urachus present. Consider urology consultation and follow-up. Assessment & Plan - Diagnosis (1) Atrial fibrillation with rapid ventricular response Is this a current diagnosis for this admission?: Yes Plan: Ct with Metoprolol 500 mg BID PO; Ct with Warfarin 4 mg qhs po; F/U PT/INR as per protocol. (2) Urinary tract infection Qualifiers: Urinary tract infection type: acute cystitis Is this a current diagnosis for this admission?: Yes Plan: This is due to E.coli and Staph. epidermidis- possibly contaminant. Ct with Augmentin 500/125 1 tablet q8h po;Tyenol 650 mg q6h po prn. (3) OMAR (acute kidney injury) Is this a current diagnosis for this admission?: Yes Plan: Ct with IV Fluids normal saline at 75 cc/hour cautiously due to hx of CHF. Strict input/output chart; Daily weight;Avoid nephrotoxics; monitor chemistries daily. (4) Hyponatremia Is this a current diagnosis for this admission?: Yes Plan: Ct with IV fluids normal saline at 75 cc/hr; Monitor chemistries daily. (5) HTN (hypertension) Qualifiers: Hypertension type: essential hypertension Qualified Code(s): I10 - Essential (primary) hypertension Is this a current diagnosis for this admission?: Yes Plan: Ct with Metoprolol 50 mg BID po; 2 g sodium diet. (6) Hyperlipemia Qualifiers: Hyperlipidemia type: unspecified Qualified Code(s): E78.5 - Hyperlipidemia , unspecified Is this a current diagnosis for this admission?: Yes Plan: Ct with Atorvastatin 10 mg qhs po; 200 mg cholesterol diet. (7) Chronic diastolic CHF (congestive heart failure) Is this a current diagnosis for this admission?: Yes Plan: We will decrease Lasix to 20mg qd po due to acute kidney injury; D/C Metolazone 5 mg qd po; Restart KCL 20 MEQ qd po since his potassium went down to 3.0; monitor chemistries daily.Daily weight; strict input/output chart. (8) Rheumatoid arthritis Qualifiers: Rheumatoid arthritis location: unspecified site Is this a current diagnosis for this admission?: Yes Plan: CT with Methotrexate 10 mg po on mondays; Prednisone 10 mg qd po. (9) Neuropathy Is this a current diagnosis for this admission?: Yes Plan: Ct with Gabapentin 300 mg qhs po. (10) BPH (benign prostatic hyperplasia) Qualifiers: Lower urinary tract symptom detail: unspecified Is this a current diagnosis for this admission?: Yes Plan: Ct with Avodart 0.5 mg qd po; Rapaflo 4mg qd po. (11) Reflux esophagitis Is this a current diagnosis for this admission?: Yes Plan: Ct with Prevacid 30 mg qd po since we do not have Omeprazole in our formulary. (12) Gout Qualifiers: Gout site: unspecified site Is this a current diagnosis for this admission?: Yes Plan: We will decrease Allopurinol to 100 mg qd po due to acute kidney injury. (13) Hypokalemia Is this a current diagnosis for this admission?: Yes Plan: He has been givn several doses of KCL 20 MEQ IV and KCL PO [address] with KCL 20 MEQ daily po. Monitor chemistries daily. (14) DVT prophylaxis Is this a current diagnosis for this admission?: Yes Plan: Ct with Lovenox 30 mg qd subcut; SCD.
[2016-10-05] MEDS: GABAPENTIN 300 MG CAPSULE PO SCH (21:56)
[2016-10-05] MEDS: WARFARIN SODIUM 4 MG TABLET PO SCH (21:56)
[2016-10-06] MEDS: AMOXICILLIN TR/POT CLAVULANATE 500-125 MG TAB PO SCH ×2 (05:00→13:50)
[2016-10-06 05:06] LABS: PROTHROMBIN TIME 14.5 SEC (11.4-15.4)
[2016-10-06 05:11] LABS: HEMATOCRIT 35.5 % (37.9-51.0); HEMOGLOBIN 11.9 g/dL (13.5-17.0); HGB HCT DIFFERENCE 0.2; MEAN CORPUSCULAR HEMOGLOBIN 33.6 pg (27.0-33.4); MEAN CORPUSCULAR HGB CONC 33.7 g/dL (32.0-36.0); MEAN CORPUSCULAR VOLUME 100 fl (80-97); RED BLOOD COUNT 3.55 10^6/uL (4.35-5.55); RED CELL DISTRIBUTION WIDTH 17.1 % (11.5-14.0); WHITE BLOOD COUNT 13.1 10^3/uL (4.0-10.5)
[2016-10-06 05:25] LABS: ALANINE AMINOTRANSFERASE 81 U/L (21-72); ALBUMIN 2.8 g/dL (3.5-5.0); ALKALINE PHOSPHATASE 189 U/L (38-126); ANION GAP 9 (5-19); ASPARTATE AMINO TRANSFERASE 56 U/L (17-59); BILIRUBIN,DIRECT 0.5 mg/dL (0.0-0.4); BILIRUBIN,TOTAL 0.5 mg/dL (0.2-1.3); BLOOD UREA NITROGEN 24 mg/dL (7-20); CALCIUM 8.8 mg/dL (8.4-10.2); CARBON DIOXIDE 27 mmol/L (22-30); CHLORIDE 99 mmol/L (98-107); CREATININE RESULT 0.73 mg/dL (0.52-1.25); GLUCOSE 89 mg/dL (75-110); POTASSIUM 3.6 mmol/L (3.6-5.0); SODIUM 135.3 mmol/L (137-145); TOTAL PROTEIN 5.2 g/dL (6.3-8.2)
[2016-10-06 05:45] LABS: BASOPHILS % (MANUAL) 0 % (0-2); EOSINOPHILS % (MANUAL) 0 % (0-6); LYMPHOCYTES % (MANUAL) 8 % (13-45); TOTAL CELLS COUNTED 100
[2016-10-06 05:47] LABS: POLYCHROMASIA SLIGHT; TOXIC GRANULATION SLIGHT; TOXIC VACUOLATION PRESENT
[2016-10-06 05:48] LABS: ANISOCYTOSIS 1+; SCHISTOCYTES SLIGHT
[2016-10-06 06:15] LABS: APPEARANCE,URINE CLEAR; BILIRUBIN,URINE NEGATIVE (NEGATIVE); GLUCOSE, URINE NEGATIVE (NEGATIVE); KETONES,URINE NEGATIVE (NEGATIVE); LEUKOCYTE ESTERASE,URINE LARGE (NEGATIVE); NITRITE,URINE NEGATIVE (NEGATIVE); PROTEIN,URINE NEGATIVE (NEGATIVE); URINE SPECIFIC GRAVITY 1.009; UROBILINOGEN,URINE NEGATIVE mg/dL (<2.0)
[2016-10-06] MEDS: ACETAMINOPHEN 325 MG TABLET PO PRN (09:19)
[2016-10-06] MEDS: FUROSEMIDE 20 MG TABLET PO SCH (09:21)
[2016-10-06] MEDS: LANSOPRAZOLE 30 MG TAB.RAP.DR PO SCH (09:21)
[2016-10-06] MEDS: POTASSIUM CHLORIDE 10 MEQ TABLET.SA PO SCH (09:21)
[2016-10-06] MEDS: CITALOPRAM HYDROBROMIDE 20 MG TABLET PO SCH (09:21)
[2016-10-06] MEDS: DUTASTERIDE 0.5 MG CAPSULE PO SCH (09:21)
[2016-10-06] MEDS: METOPROLOL TARTRATE 50 MG TABLET PO SCH (09:21)
[2016-10-06] MEDS: PREDNISONE 10 MG TABLET PO SCH (09:21)
[2016-10-06] MEDS: ALLOPURINOL 100 MG TABLET PO SCH (09:22)
--- NOTE | 2016-10-06 13:20 | PDOC DISCHARGE SUMMARY ---
General - Admit/Disc Date/PCP Admission Date/Primary Care Provider: 09/29/16 20:52 MARYELLEN AGRAWAL Discharge Date: 10/06/16 - Discharge Diagnosis (1) Atrial fibrillation with rapid ventricular response Is this a current diagnosis for this admission?: Yes (2) Urinary tract infection Is this a current diagnosis for this admission?: Yes (3) OMAR (acute kidney injury) Is this a current diagnosis for this admission?: Yes (4) Hyponatremia Is this a current diagnosis for this admission?: Yes (5) HTN (hypertension) Is this a current diagnosis for this admission?: Yes (6) Hyperlipemia Is this a current diagnosis for this admission?: Yes (7) Chronic diastolic CHF (congestive heart failure) Is this a current diagnosis for this admission?: Yes (8) Rheumatoid arthritis Is this a current diagnosis for this admission?: Yes (9) Neuropathy Is this a current diagnosis for this admission?: Yes (10) BPH (benign prostatic hyperplasia) Is this a current diagnosis for this admission?: Yes (11) Reflux esophagitis Is this a current diagnosis for this admission?: Yes (12) Gout Is this a current diagnosis for this admission?: Yes (13) Hypokalemia Is this a current diagnosis for this admission?: Yes (14) DVT prophylaxis Is this a current diagnosis for this admission?: Yes - Additional Information Home Medications: Atorvastatin Calcium [Lipitor 10 mg Tablet] 10 mg PO QHS 09/30/16 Dutasteride [Avodart] 0.5 mg PO DAILY 09/30/16 Folic Acid [Folvite 1 mg Tablet] 1 mg PO DAILY 09/30/16 Gabapentin [Neurontin 300 mg Capsule] 300 mg PO QHS 09/30/16 Metoprolol Tartrate [Lopressor 50 mg Tablet] 50 mg PO Q12 09/30/16 Omeprazole 40 mg PO DAILY 09/30/16 Potassium Chloride [K-Tab ER] 20 meq PO DAILY 09/30/16 Prednisone [Deltasone 5 mg Tablet] 5 mg PO DAILY 09/30/16 Tamsulosin HCl [Flomax 0.4 mg Cap.sr] 0.4 mg PO DAILY 09/30/16 Aspirin [Aspirin EC] 81 mg PO DAILY 10/04/16 Ferrous Sulfate [Ferosul] 325 mg PO DAILY 10/04/16 Acetaminophen [Tylenol 325 mg Tablet] 650 mg PO Q6HP PRN tablet 10/06/16 Allopurinol [Zyloprim 100 mg Tablet] 100 mg PO DAILY #30 tablet 10/06/16 Amox Tr/Potassium Clavulanate [Augmentin "500" Tablet] 1 tab PO Q8 7 Days #21 tablet 10/06/16 Citalopram Hydrobromide [Celexa 20 mg Tablet] 20 mg PO DAILY #30 tablet Furosemide [Lasix 20 mg Tablet] 20 mg PO DAILY tablet 10/06/16 Warfarin Sodium [Coumadin 4 mg Tablet] 4 mg PO QHS #30 tablet 10/06/16 History of Present Illness History of Present Illness: ROSLYN FELIX is a 76 year old male with hx of HTN/Hyperlipidemia/A-fib on warfarin/CHF- diastolic dysfunction/Rheumatoid arthritis/CKD/GERD/BPH/Gout/ neuropathy/Lymphedema/Depression who was having dysuria, frequency, hematuria and hesitancy for about 10 days. He was being treated with Bactrim by his urologist, Dr Bennett and has had it for 5 days but he is still having symptoms and was seen by his urologist the day before presentation.He was called by urologist office to go to ER for evaluation on the day of presentation. He also has nausea, chills, weakness, but no fever or loin pain. Hospital Course Hospital Course: 76 year old man who was admitted at [facility] for A-fib with RVR/UTI secondary to staph. epidermidis/Acute kidney injury. He was put on IV fluids cautiously due to history of CHF; he was also put initially on Vancomycin and Levaquin which were later discontinued based on blood and urine culture results and switched to Augmentin. His kidney function is back to normal. He was seen by physical therapy and they recommended short term REHAB due to deconditioning and moreover patient lives alone. He has been accepted at [facility] for short term REHAB.He will have Augmentin for 7 more days. Physical Exam Vital Signs: Temp Pulse Resp BP Pulse Ox 97.5 F 82 19 107/70 98 10/06/16 12:00 10/06/16 12:00 10/06/16 12:00 10/06/16 12:00 10/06/16 12:00 Intake & Output 10/05/16 10/06/16 10/07/16 06:59 06:59 06:59 Intake Total 2313 925 237 Output Total 1425 1600 Balance 888 -675 237 Weight 125.4 kg 125.4 kg General appearance: PRESENT: no acute distress, cooperative, well-developed, well-nourished Eye exam: PRESENT: EOMI, PERRLA Ear exam: PRESENT: normal external ear exam, TM's normal bilaterally Mouth exam: PRESENT: moist, neck supple, tongue midline Neck exam: PRESENT: full ROM Respiratory exam: PRESENT: clear to auscultation ton, symmetrical Cardiovascular exam: PRESENT: +S1, +S2 Pulses: PRESENT: +2 pedal pulses bilateral GI/Abdominal exam: PRESENT: normal bowel sounds, soft Rectal exam: PRESENT: deferred Musculoskeletal exam: PRESENT: full ROM Neurological exam: PRESENT: alert, awake, oriented to person, oriented to place , oriented to time Psychiatric exam: PRESENT: normal mood Results Laboratory Results: 10/06/16 04:18 10/06/16 04:18 10/06/16 10/06/16 10/06/16 04:18 04:18 04:40 WBC 13.1 H RBC 3.55 L Hgb 11.9 L Hct 35.5 L MCV 100 H MCH 33.6 H MCHC 33.7 RDW 17.1 H Plt Count 326 Seg Neutrophils % Not Reportable Lymphocytes % Not Reportable Monocytes % Not Reportable Eosinophils % Not Reportable Basophils % Not Reportable Absolute Neutrophils Not Reportable Absolute Lymphocytes Not Reportable Absolute Monocytes Not Reportable Absolute Eosinophils Not Reportable Absolute Basophils Not Reportable Sodium 135.3 L Potassium 3.6 Chloride 99 Carbon Dioxide 27 Anion Gap 9 BUN 24 H Creatinine 0.73 Est GFR ( Amer) > 60 Est GFR (Non-Af Amer) > 60 Glucose 89 Calcium 8.8 Total Bilirubin 0.5 AST 56 ALT 81 H Alkaline Phosphatase 189 H Total Protein 5.2 L Albumin 2.8 L Urine Color YELLOW Urine Appearance CLEAR Urine pH 7.0 Ur Specific [place] 1.009 Urine Protein NEGATIVE Urine Glucose (UA) NEGATIVE Urine Ketones NEGATIVE Urine Blood MODERATE H Urine Nitrite NEGATIVE Ur Leukocyte Esterase LARGE H Urine WBC (Auto) 60 Urine RBC (Auto) 11 Impressions: Abdomen/Pelvis CT 09/29/16 19:23 IMPRESSION: New wall thickening of the bladder with intramural-intraluminal gas present at the anterior-superior bladder wall suggesting acute infectious process. There may be a patent urachus present. Consider urology consultation and follow-up.
[2016-10-06 17:32] VITALS: BP 110/63
== END 2016-10-06 17:35 | DRG 309 ==
LOC: ER 16:40 → EH 20:52 → UNDOADMIN 20:52 → 4N 23:53 → EH 23:53 → 3W 09-30 01:29 → 4N 09-30 01:29
PROVIDERS: ADMIT Internal Medicine; ATTEND Internal Medicine
DX: I48.91 Unspecified atrial fibrillation (principal); N30.01 Acute cystitis with hematuria; N17.9 Acute kidney failure, unspecified; E87.1 Hypo-osmolality and hyponatremia; I50.32 Chronic diastolic (congestive) heart failure; I11.0 Hypertensive heart disease with heart failure; B96.20 Unspecified Escherichia coli [E. coli] as the cause of diseases classified elsewhere; B95.7 Other staphylococcus as the cause of diseases classified elsewhere; E87.6 Hypokalemia; E78.5 Hyperlipidemia, unspecified; M06.9 Rheumatoid arthritis, unspecified; G62.9 Polyneuropathy, unspecified; N40.0 Benign prostatic hyperplasia without lower urinary tract symptoms; K21.0 Gastro-esophageal reflux disease with esophagitis; M10.9 Gout, unspecified; F32.9 Major depressive disorder, single episode, unspecified; Z79.899 Other long term (current) drug therapy; Z79.82 Long term (current) use of aspirin; Z79.01 Long term (current) use of anticoagulants; Z86.718 Personal history of other venous thrombosis and embolism; Z96.649 Presence of unspecified artificial hip joint; Z88.8 Allergy status to other drugs, medicaments and biological substances
CPT/HCPCS: 36415; 74176; 80048; 80053; 80061; 80202; 81001; 82272; 82565; 82803; 83605; 84443; 85025; 85027; 85610; 87040; 87077; 87086; 87088; 87186; 93005; 93010; 96360; 99285; G8978-GP; G8979-GP; J1650; J1956; J3370; J3480; J3490; J7030; J7040; J7060; J7512

== ENCOUNTER → 2017-06-01 | Outpatient (CLI) | payer MEDICARE, BC ==
[~2017-06-01] MED LIST: DIAZEPAM 5 MG TABLET PO PRN
--- NOTE | 2017-06-01 14:38 | RADIOLOGY REPORT (SQ) ---
EXAM DESCRIPTION: CT HEAD WITHOUT COMPLETED DATE/TIME: 06/01/2017 1:53 pm REASON FOR STUDY: SYNCOPE AND COLLAPSE R55 SYNCOPE AND COLLAPSE COMPARISON: None. TECHNIQUE: Axial images acquired through the brain without intravenous contrast. Images reviewed wi th bone, brain and subdural windows. Additional sagittal and coronal reconstructions were generated. Images stored on PACS. All CT scanners at this facility use dose modulation, iterative reconstruction, and/or weight based d osing when appropriate to reduce radiation dose to as low as reasonably achievable (ALARA). [facility]: Dose Right [facility]: CareDose [facility]: Dose Right [facility]: Teradose 4D [facility]: MugenUp RADIATION DOSE: 48.64 mGy. LIMITATIONS: None. FINDINGS: VENTRICLES: Prominent. CEREBRUM: No masses. No hemorrhage. No midline shift. Areas of low density in the white matter mos t likely due to chronic micro-vascular ischemic change. No evidence for acute infarction. CEREBELLUM: No masses. No hemorrhage. No alteration of density. No evidence for acute infarction. EXTRAAXIAL SPACES: Mild age-related involutional change. No fluid collections. No masses. ORBITS AND GLOBE: No intra- or extraconal masses. Normal contour of globe without masses. CALVARIUM: No fracture. PARANASAL SINUSES: No fluid or mucosal thickening. SOFT TISSUES: No mass or hematoma. OTHER: No other significant finding. IMPRESSION: MILD CHRONIC CHANGES OF ATROPHY AND MICROVASCULAR ISCHEMIA. NO ACUTE PROCESS. EVIDENCE OF ACUTE STROKE: No TECHNICAL DOCUMENTATION: JOB ID: [id number] Quality ID # [id number]: Final reports with documentation of one or more dose reduction techniques (e.g., Au tomated exposure control, adjustment of the mA and/or kV according to patient size, use of iterative reconstruction technique) 2010 [employer]- All Rights Reserved Reading location - IP/workstation name: [email or web address]
== END ==
LOC: RAD 13:37
PROVIDERS: ATTEND Physician Assistant Medical
DX: R55 Syncope and collapse (principal)
CPT/HCPCS: 70450

== ENCOUNTER → 2017-06-16 | Outpatient (CLI) | payer MEDICARE, BC ==
--- NOTE | 2017-06-16 16:19 | RADIOLOGY REPORT (SQ) ---
EXAM DESCRIPTION: LUMBAR SPINE COMPLETE COMPLETED DATE/TIME: 06/16/2017 4:08 pm REASON FOR STUDY: LOW BACK PAIN M54.5 LOW BACK PAIN COMPARISON: None. NUMBER OF VIEWS: Five views including obliques. TECHNIQUE: AP, lateral, oblique, and sacral radiographic images acquired of the lumbar spine. LIMITATIONS: None. FINDINGS: MINERALIZATION: Normal. SEGMENTATION: Normal. No transitional anatomy. ALIGNMENT: Normal. VERTEBRAE: Mild height loss at several levels which is chronic. There is mild depression of the supe rior endplate of L1 which was not evident on the CT in August 2016. DISCS: Multilevel disc space narrowing with osteophytes. POSTERIOR ELEMENTS: Pedicles and facets are intact. No pars defect or posterior arch defects. Facet arthropathy is present. HARDWARE: None in the spine. PARASPINAL SOFT TISSUES: Normal. PELVIS: Intact as visualized. No fractures or worrisome bone lesions. SI joints intact. OTHER: No other significant finding. IMPRESSION: Mild compression superior endplate L1 of uncertain chronicity, but not present in August 08 017. Spondylosis. TECHNICAL DOCUMENTATION: JOB ID: [id number] [employer]- All Rights Reserved Reading location - IP/workstation name: [email or web address]
== END ==
LOC: OD 15:49
PROVIDERS: ATTEND Physician Assistant Medical
DX: M54.5 Low back pain (principal); M47.896 Other spondylosis, lumbar region
CPT/HCPCS: 72110

== ENCOUNTER 2017-12-18 10:54 | Inpatient (IN) | payer MEDICARE, BC ==
[2017-12-18] MEDS ORDERED: NORMAL SALINE 1000 ML 250 ML IV ONE (11:05)
--- NOTE | 2017-12-18 11:05 | ER Document Report ---
ED General <DOMENICAENMANUEL NarvaezMARVIN - Last Filed: 12/18/17 15:30> - General Mode of Arrival: Ambulatory Information source: Patient TRAVEL OUTSIDE OF THE [place] IN LAST 30 DAYS: No <BC ANGUIANO - Last Filed: 12/18/17 16:54> - General Chief Complaint: Unresponsive Stated Complaint: UNRESPONSIVE Time Seen by Provider: 12/18/17 11:05 Notes: Patient is a 77 year old male presenting to the emergency department Via EMS after being found unresponsive. EMS states that the patient initially called them around 0800 this morning after a fall. They state that the patient had fallen approximately 6 hours before and stated he did not want to contact emergency services due to "not wanting to bother anybody". EMS states that the patient was supine in the hallway upon their arrival and states the patient stated he felt better, only a little weak and refused medical attention. EMS states that their services were called again a few hours later complaining being unable to get off of his toilet. Upon their arrival to the scene, patient was found unresponsive, with agonal respirations sitting on a toilet. Patient then went into PEA and received 1 cycle of CPR, 1 mg of epinephrine via IO after which ROSC was obtained. Family mentions the patient having a nurse from wound care occasionally wrapping the patient's RLE due to an ulcer on the right ankle. (BC ANGUIANO) - Related Data Allergies/Adverse Reactions: cephalexin monohydrate [From Keflex] Allergy (Severe, Verified 09/29/16 17:11) Past Medical History - General Information source: [facility], [facility] Records - Social History Smoking Status: Unknown if Ever Smoked Family History: Reviewed & Not Pertinent - Past Medical History Cardiac Medical History: Reports: Hx Atrial Fibrillation, Hx DVT, Hx Hypertension GI Medical History: Reports: Hx Gastroesophageal Reflux Disease Musculoskeletal Medical History: Reports Hx Arthritis Psychiatric Medical History: Reports: Hx Depression Past Surgical History: Reports: Hx Orthopedic Surgery - Hip replacement - Immunizations Hx Diphtheria, Pertussis, Tetanus Vaccination: Yes <BC ANGUIANO - Last Filed: 12/18/17 16:54> Review of Systems - Review of Systems -: Yes ROS unobtainable due to patient's medical condition - unresponsive <BC ANGUIANO - Last Filed: 12/18/17 16:54> Physical Exam <MARVIN METZGER - Last Filed: 12/18/17 15:30> <BC ANGUIANO - Last Filed: 12/18/17 16:54> - Vital signs Vitals: Resp 20 12/18/17 10:58 - Notes Notes: GENERAL:Unresponsive. HEAD: Normocephalic, atraumatic. EYES: Pupils equal, approximately 1.5mm, and reactive to light. ENT: Oral mucosa and posterior pharynx dry, tongue midline. LUNGS: Agonal respirations initally. Intubated, no gag reflex during intubation. HEART: Can not hear heart tones. Palpable pulse. Good waveform on oximetry. ABDOMEN: Soft, non-tender. Non-distended. Bowel sounds present in all 4 quadrants. EXTREMITIES: Unresponsive. Bandaged on right leg starting just above the knee to the ankle, consistent with history of an ankle ulcer. NEUROLOGICAL: Unresponsive. Does not respond to noxious stimuli. PSYCH: Unresponsive. (BC ANGUIANO) Course - Laboratory Result Diagrams: 12/18/17 11:07 12/18/17 11:07 - Diagnostic Test Radiology reviewed: Image reviewed, Reports reviewed - Endotracheal tube is appropriately placed with bilateral lung inflation. Nasogastric tube shows the tip probably in the stomach. - EKG Interpretation by Pr EKG shows normal: [place], Intervals, QRS Complexes, ST-T Waves Rhythm: A.Fib [place]/QRS: RBBB - Consults Dr. Cain Time consulted: 12:55 Consulted provider: will come to ER <MARVIN METZGER - Last Filed: 12/18/17 15:30> - Laboratory Result Diagrams: 12/18/17 11:07 12/18/17 11:07 <BC ANGUIANO - Last Filed: 12/18/17 16:54> - Re-evaluation Re-evalutation: 12/18/17 11:14 At E 1107 the patient went back into PEA, stopped his agonal respirations and no pulse can be found. Chest compressions CPR was started, the patient was on the ventilator at this time. Patient was given 1 amp of D50 W, 1 amp of bicarb, and 1 amp of epinephrine IV. He was receiving a normal saline bolus at the time. At 1111 the CPR was stopped and he was found to have a pulse and regained his agonal respirations. 12/18/17 11:34 Patient is now awake, eyes open, requiring restraints. He will be given 1 mg of Ativan. His most recent blood pressure was 75 systolic, he will be given another liter of IV normal saline as his urine does look quite concentrated. 12/18/17 12:19 The patient was put on a Levophed drip due to his hypotension. It is now 70 minutes since the blood was drawn and the chemistries are still pending. I will give him another amp of sodium bicarb while waiting for the chemistry results. 12/18/17 14:46 The patient did have a S in lead I, and old Q in lead III, and a new inverted T in lead III. A bedside echo suggested right heart strain. The case was discussed with the radiologist aeronautical engineering teacher, she was not comfortable with the patient receiving IV contrast without nephrology clearance, we do not have nephrology aeronautical engineering teacher. She recommended a VQ scan. (MARVIN METZGER) 12/18/17 11:11 By 11:07 patient was no longer agonal breathing and pulse was not obtained. CPR started. (BC ANGUIANO) - Vital Signs Vital signs: Temp Pulse Resp BP Pulse Ox 98.5 F 29 H 86/71 L 78 L 12/18/17 14:31 12/18/17 14:31 12/18/17 14:31 12/18/17 14:10 - Laboratory Laboratory results interpreted by me: 12/18/17 12/18/17 12/18/17 11:07 11:07 11:07 RBC 3.98 L MCV 107 H MCH 34.7 H RDW 16.8 H Seg Neuts % (Manual) 80 H Lymphocytes % (Manual) 11 L Abs Neuts (Manual) 8.4 H PT Carbonic Acid ABG pCO2 ABG pO2 ABG HCO3 ABG Total CO2 ABG O2 Saturation Sodium 133.0 L Chloride 90 L Carbon Dioxide 14 L Anion Gap 29 H BUN 29 H Creatinine 3.63 H Est GFR ( Amer) 20 L Est GFR (Non-Af Amer) 16 L Glucose 74 L Lactic Acid 14.8 H Direct Bilirubin 0.7 H AST 324 H Creatine Kinase 06537 H CK-MB (CK-2) Ur Leukocyte Esterase 12/18/17 12/18/17 12/18/17 11:07 11:07 12:00 RBC MCV MCH RDW Seg Neuts % (Manual) Lymphocytes % (Manual) Abs Neuts (Manual) PT 21.9 H Carbonic Acid ABG pCO2 ABG pO2 ABG HCO3 ABG Total CO2 ABG O2 Saturation Sodium Chloride Carbon Dioxide Anion Gap BUN Creatinine Est GFR ( Amer) Est GFR (Non-Af Amer) Glucose Lactic Acid Direct Bilirubin AST Creatine Kinase CK-MB (CK-2) 99.10 H Ur Leukocyte Esterase TRACE H 12/18/17 13:20 RBC MCV MCH RDW Seg Neuts % (Manual) Lymphocytes % (Manual) Abs Neuts (Manual) PT Carbonic Acid 1.04 L ABG pCO2 34.4 L ABG pO2 169.2 H ABG HCO3 18.4 L ABG Total CO2 19.4 L ABG O2 Saturation 99.1 H Sodium Chloride Carbon Dioxide Anion Gap BUN Creatinine Est GFR ( Amer) Est GFR (Non-Af Amer) Glucose Lactic Acid Direct Bilirubin AST Creatine Kinase CK-MB (CK-2) Ur Leukocyte Esterase Procedures - Intubation Orotracheal Time of Intubation: 10:55 Intubation method: Orotracheal Blade type: Alana Blade size: 4 ETT size: 7.5 ETT secured at: Teeth Breath Sounds after Intubation: Equal End tidal CO2 confirmed: Yes Ventilator settings: PS Post Intubation Xray: Yes Intubation Complications: No complications <MARVIN METZGER - Last Filed: 12/18/17 15:30> Critical Care Note - Critical Care Note Total time excluding time spent on procedures (mins): 75 <MARVIN METZGER - Last Filed: 12/18/17 15:30> <BC ANGUIANO - Last Filed: 12/18/17 16:54> - Critical Care Note Comments: At least 75 minutes was spent on evaluations, resuscitations, and multiple re- evaluations with almost a minute by minute reevaluation and medication orders as the patient was initially with agonal respirations, after he was stabilized with intubation he returned to PEA and went through 4 minutes of CPR before pulse was restored. He then became combative and required sedation and restraints. He then became hypotensive requiring additional IV fluids and then pressor drips. There were phone calls to to hospitalist to discuss his admission. There were phone calls to the lab to try to get chemistries to help guide his resuscitation. (MARVIN METZGER) Discharge - Discharge Admitting Provider: Hospitalist Unit Admitted: ICU <MARVIN METZGER - Last Filed: 12/18/17 15:30> <BC ANGUIANO - Last Filed: 12/18/17 16:54> - Discharge Clinical Impression: Cardiopulmonary arrest with successful resuscitation, Metabolic acidosis, Dehydration, Chronic atrial fibrillation Acute renal failure Qualifiers: Acute renal failure type: unspecified Qualified Code(s): N17.9 - Acute kidney failure, unspecified Rhabdomyolysis Qualifiers: Rhabdomyolysis type: non-traumatic Qualified Code(s): M62.82 - Rhabdomyolysis Hypotension Qualifiers: Hypotension type: unspecified hypotension type Qualified Code(s): I95.9 - Hypotension, unspecified Condition: Critical Disposition: ADMITTED INPATIENT Scribe Attestation: 12/18/17 15:30 I personally performed the services described in the documentation, reviewed and edited the documentation which was dictated to the scribe in my presence, and it accurately records my words and actions. (MARVIN METZGER) Scribe Documentation - Scribe Written by Scribe:: Albino Dillon, 12/18/2017 11:29 acting as scribe for :: Domenica <BC ANGUIANO - Last Filed: 12/18/17 16:54>
[2017-12-18] MEDS ORDERED: DEXTROSE 50%-WATER 25 GM/50 ML DISP.SYRIN IV ONE ×3 (11:06→21:37)
[2017-12-18] MEDS ORDERED: SODIUM BICARBONATE 8.4% INJ 50 MEQ/50 ML DISP.SYRIN IV ONE ×2 (11:10→12:20)
[2017-12-18] MEDS ORDERED: NORMAL SALINE 1000 ML 1,000 ML IV ONE ×2 (11:30→12:45)
[2017-12-18 11:34] LABS: HEMATOCRIT 42.6 % (37.9-51.0); HEMOGLOBIN 13.8 g/dL (13.5-17.0); INTERNATIONAL RATION (INR) 1.81; MEAN CORPUSCULAR HEMOGLOBIN 34.7 pg (27.0-33.4); MEAN CORPUSCULAR HGB CONC 32.4 g/dL (32.0-36.0); MEAN CORPUSCULAR VOLUME 107 fl (80-97); PLATELET COUNT 211 10^3/uL (150-450); PROTHROMBIN TIME 21.9 SEC (11.4-15.4); RED BLOOD COUNT 3.98 10^6/uL (4.35-5.55); RED CELL DISTRIBUTION WIDTH 16.8 % (11.5-14.0); WHITE BLOOD COUNT 10.1 10^3/uL (4.0-10.5)
[2017-12-18] MEDS ORDERED: LORAZEPAM INJ 2 MG/1 ML VIAL IV ONE (11:34)
--- NOTE | 2017-12-18 11:42 | RADIOLOGY REPORT (SQ) ---
EXAM DESCRIPTION: CHEST SINGLE VIEW COMPLETED DATE/TIME: 12/18/2017 11:26 am REASON FOR STUDY: Postarrest, post intubation COMPARISON: 08/25/2015. FINDINGS: AP single-view portable semi-upright chest image. Obscuring external artifact particularly over the left base and upper abdomen. Endotracheal tube in place, appropriate. ET tube probably with its tip in the stomach. Limiting regional artifact. Low lung volumes. Otherwise grossly clear allowing for artifact. IMPRESSION: 1. Appropriate endotracheal tube. 2. Endotracheal tube probably has its tip within the stomach, limited visualization. TECHNICAL DOCUMENTATION: JOB ID: [id number] Reading location - IP/workstation name: [email or web address]
[2017-12-18] MEDS ORDERED: DEXTROSE 5%-WATER 250 ML with NOREPINEPHRINE BITARTRATE 4 MG IV PRN ×4 (11:47→15:37)
[2017-12-18 11:49] LABS: ALANINE AMINOTRANSFERASE 68 U/L (21-72); ALBUMIN 3.6 g/dL (3.5-5.0); ALKALINE PHOSPHATASE 85 U/L (38-126); ASPARTATE AMINO TRANSFERASE 324 U/L (17-59); BILIRUBIN,DIRECT 0.7 mg/dL (0.0-0.4); BILIRUBIN,TOTAL 1.2 mg/dL (0.2-1.3); BLOOD UREA NITROGEN 29 mg/dL (7-20); CALCIUM 9.5 mg/dL (8.4-10.2); GLUCOSE 74 mg/dL (75-110); POTASSIUM 4.7 mmol/L (3.6-5.0); TOTAL PROTEIN 6.3 g/dL (6.3-8.2)
[2017-12-18] MEDS: NOREPINEPHRINE BITARTRATE INJ/PF 4 MG/4 ML SDV IV ONE ×2 (11:50→12:18)
[2017-12-18 11:54] LABS: CARBON DIOXIDE 14 mmol/L (22-30); CHLORIDE 90 mmol/L (98-107)
[2017-12-18 11:59] LABS: ABSOLUTE LYMPHOCYTES# (MANUAL) 1.2 10^3/uL (0.5-4.7); ABSOLUTE MONOCYTES # (MANUAL) 0.5 10^3/uL (0.1-1.4); ABSOLUTE NEUTROPHILS# (MANUAL) 8.4 10^3/uL (1.7-8.2); BAND NEUTROPHILS % (MANUAL) 3 % (3-5); BASOPHILS % (MANUAL) 0 % (0-2); EOSINOPHILS % (MANUAL) 0 % (0-6); LYMPHOCYTES % (MANUAL) 11 % (13-45); MONOCYTES % (MANUAL) 5 % (3-13); SEGMENTED NEUTROPHILS % (MAN) 80 % (42-78); TOTAL CELLS COUNTED 100
[2017-12-18 12:00] LABS: CREATINE KINASE MB 99.1 ng/mL (<4.55)
[2017-12-18 12:01] LABS: ANISOCYTOSIS 1+; PLATELET COMMENT ADEQUATE; TOXIC GRANULATION SLIGHT
[2017-12-18 12:03] LABS: TROPONIN I 0.653 ng/mL
[2017-12-18 12:37] LABS: CREATINE KINASE 13305 U/L (55-170)
[2017-12-18 12:38] LABS: ANION GAP 29 (5-19)
[2017-12-18 12:47] LABS: APPEARANCE,URINE SLIGHTLY-CLOUDY; BILIRUBIN,URINE NEGATIVE (NEGATIVE); COLOR,URINE YELLOW; GLUCOSE, URINE NEGATIVE (NEGATIVE); KETONES,URINE NEGATIVE (NEGATIVE); LEUKOCYTE ESTERASE,URINE TRACE (NEGATIVE); NITRITE,URINE NEGATIVE (NEGATIVE); PROTEIN,URINE NEGATIVE (NEGATIVE); URINE SPECIFIC GRAVITY 1.013; UROBILINOGEN,URINE NEGATIVE mg/dL (<2.0)
[2017-12-18] MEDS ORDERED: SODIUM BICARBONATE 8.4% INJ 50 MEQ/50 ML DISP.SYRIN ONE (13:41)
[2017-12-18] MEDS ORDERED: EPINEPHRINE INJ 1 MG/10 ML DISP.SYRIN ONE (13:41)
[2017-12-18 13:46] LABS: ARTERIAL BLOOD BASE EXCESS -6.4 mmol/L; ARTERIAL BLOOD FIO2 80%; ARTERIAL BLOOD H2CO3 1.04 mmol/L (1.05-1.35); ARTERIAL BLOOD HCO3 18.4 mmol/L (20-24); ARTERIAL BLOOD O2 SATURATION 99.1 % (94-98); ARTERIAL BLOOD PCO2 34.4 mmHg (35-45); ARTERIAL BLOOD PH 7.35 (7.35-7.45); ARTERIAL BLOOD PO2 169.2 mmHg (80-100); ARTERIAL BLOOD TOTAL CO2 19.4 mmol/L (23-27)
[2017-12-18] MEDS ORDERED: MIDAZOLAM HCL 50 MG/100 ML RTUINJ ONE (15:04)
[2017-12-18] MEDS ORDERED: HEPARIN SODIUM,PORCINE/D5W 25,000 UNIT/250 ML RTUINJ IV PRN (15:34)
[2017-12-18] MEDS ORDERED: MIDAZOLAM HCL 50 MG/100 ML RTUINJ IV PRN (15:37)
[2017-12-18] MEDS ORDERED: NORMAL SALINE 1000 ML 1,000 ML IV PRN (16:07)
[2017-12-18 16:15] LABS: URINE AMPHETAMINES SCREEN NEGATIVE; URINE BARBITURATES SCREEN NEGATIVE; URINE BENZODIAZEPINES SCREEN NEGATIVE; URINE COCAINE SCREEN NEGATIVE; URINE MARIJUANA (THC) SCREEN NEGATIVE; URINE METHADONE SCREEN NEGATIVE; URINE PHENCYCLIDINE SCREEN NEGATIVE
--- NOTE | 2017-12-18 16:57 | RADIOLOGY REPORT (SQ) ---
EXAM DESCRIPTION: CT HEAD WITHOUT COMPLETED DATE/TIME: 12/18/2017 4:26 pm REASON FOR STUDY: fall COMPARISON: 06/01/2017. TECHNIQUE: Axial images acquired through the brain without intravenous contrast. Images reviewed wi th bone, brain and subdural windows. Additional sagittal and coronal reconstructions were generated. Images stored on PACS. All CT scanners at this facility use dose modulation, iterative reconstruction, and/or weight based d osing when appropriate to reduce radiation dose to as low as reasonably achievable (ALARA). [facility]: Dose Right [facility]: CareDose [facility]: Dose Right [facility]: Teradose 4D [facility]: [employer] RADIATION DOSE: CT Rad equipment meets quality standard of care and radiation dose reduction techniq ues were employed. CTDIvol: 53.2 mGy. DLP: 1097 mGy-cm. mGy. LIMITATIONS: None. FINDINGS: VENTRICLES: Normal size and contour. CEREBRUM: No masses. No hemorrhage. No midline shift. No evidence for acute infarction. Normal gra y/white matter differentiation. No areas of low density in the white matter. CEREBELLUM: No masses. No hemorrhage. No alteration of density. No evidence for acute infarction. EXTRAAXIAL SPACES: No fluid collections. No masses. ORBITS AND GLOBE: No intra- or extraconal masses. Normal contour of globe without masses. CALVARIUM: No fracture. PARANASAL SINUSES: No fluid or mucosal thickening. SOFT TISSUES: No mass or hematoma. OTHER: Intubated. IMPRESSION: NORMAL BRAIN CT WITHOUT CONTRAST. EVIDENCE OF ACUTE STROKE: NO. COMMENT: Quality ID # [id number]: Final reports with documentation of one or more dose reduction techniques (e.g., Automated exposure control, adjustment of the mA and/or kV according to patient size, use of iterative reconstruction technique) TECHNICAL DOCUMENTATION: JOB ID: [id number] [employer]- All Rights Reserved Reading location - IP/workstation name: [email or web address]
[2017-12-18 17:35] LABS: ANION GAP 18 (5-19); BLOOD UREA NITROGEN 33 mg/dL (7-20); CALCIUM 8.5 mg/dL (8.4-10.2); CARBON DIOXIDE 20 mmol/L (22-30); CHLORIDE 94 mmol/L (98-107); GLUCOSE 59 mg/dL (75-110); POTASSIUM 4.4 mmol/L (3.6-5.0); SODIUM 132.3 mmol/L (137-145)
--- NOTE | 2017-12-18 17:48 | EKG REPORT ---
SEVERITY:- ABNORMAL ECG - ATRIAL FIBRILLATION, V-RATE 85-163 RIGHT BUNDLE BRANCH BLOCK : Confirmed by: Angel Hawkins MD 18-Dec-2017 17:47:40
--- NOTE | 2017-12-18 17:49 | EKG REPORT ---
SEVERITY:- ABNORMAL ECG - ATRIAL FIBRILLATION RIGHT BUNDLE BRANCH BLOCK : Confirmed by: Angel Hawkins MD 18-Dec-2017 17:48:03
[2017-12-18] MEDS ORDERED: HEPARIN SOD (PORCINE) 1,000 UNIT/ML 10 ML VIAL IV PRN (18:35)
--- NOTE | 2017-12-18 19:04 | PDOC H&P ---
History of Present Illness Admission Date/PCP: MARYELLEN AGRAWAL Patient complains of: arrest History of Present Illness: ROSLYN FELIX is a 77 year old male with a past medical history of chronic right LE ulcer, history of DVT, atrial fibrillation on coumadin, and who was brought in by EMS after being found unresponsive. History is obtained from ER staff and sister (surrogate decision maker). Patient reportedly has not been feeling well in the past 2 days. He called EMS this morning after falling at home 6 hrs before calling them. When EMS came, patient says he felt weak but refused to go the hospital. After a few hours, patient called EMS again and he was found unresponsive in the toilet with agonal respirations. Patient was intubated. He reportedly went into PEA while en route and was given a dose of epi before obtaining ROSC. In the ER, patient went into PEA again, was given a dose of epinephrine and ROSC was obtained after 4 minutes. Patient did regain consciousness and was able to follow simple commands after ROSC. Patient's sister did say that he complained of SOB last night when he called her over the phone but did not complain of any chest pain. Past Medical History Cardiac Medical History: Reports: Atrial Fibrillation, DVT, Hypertension Denies: Myocardial Infarction Pulmonary Medical History: Denies: Asthma Neurological Medical History: Denies: Seizures GI Medical History: Reports: Gastroesophageal Reflux Disease Denies: Hepatitis, Hiatal Hernia Musculoskeltal Medical History: Reports: Arthritis Psychiatric Medical History: Reports: Depression Hematology: Reports: Anemia Denies: Sickle Cell Disease Past Surgical History Past Surgical History: Reports: Orthopedic Surgery - Hip replacement Denies: Pacemaker Social History Smoking Status: Unknown if Ever Smoked Frequency of Alcohol Use: None Hx Recreational Drug Use: No Drugs: None Hx Prescription Drug Abuse: No Family History Family History: Reviewed & Not Pertinent Parental Family History Reviewed: Yes - no premature CAD Children Family History Reviewed: No Sibling(s) Family History Reviewed.: No Medication/Allergy Home Medications: Atorvastatin Calcium [Lipitor 10 mg Tablet] 10 mg PO QHS 09/30/16 Dutasteride [Avodart] 0.5 mg PO DAILY 09/30/16 Folic Acid [Folvite 1 mg Tablet] 1 mg PO DAILY 09/30/16 Gabapentin [Neurontin 300 mg Capsule] 300 mg PO QHS 09/30/16 Metoprolol Tartrate [Lopressor 50 mg Tablet] 50 mg PO Q12 09/30/16 Omeprazole 40 mg PO DAILY 09/30/16 Potassium Chloride [K-Tab ER] 20 meq PO DAILY 09/30/16 Prednisone [Deltasone 5 mg Tablet] 5 mg PO DAILY 09/30/16 Tamsulosin HCl [Flomax 0.4 mg Cap.sr] 0.4 mg PO DAILY 09/30/16 Aspirin [Aspirin EC] 81 mg PO DAILY 10/04/16 Ferrous Sulfate [Ferosul] 325 mg PO DAILY 10/04/16 Acetaminophen [Tylenol 325 mg Tablet] 650 mg PO Q6HP PRN tablet 10/06/16 Allopurinol [Zyloprim 100 mg Tablet] 100 mg PO DAILY #30 tablet 10/06/16 Amox Tr/Potassium Clavulanate [Augmentin "500" Tablet] 1 tab PO Q8 7 Days #21 tablet 10/06/16 Citalopram Hydrobromide [Celexa 20 mg Tablet] 20 mg PO DAILY #30 tablet Furosemide [Lasix 20 mg Tablet] 20 mg PO DAILY tablet 10/06/16 Warfarin Sodium [Coumadin 4 mg Tablet] 4 mg PO QHS #30 tablet 10/06/16 Allergies/Adverse Reactions: cephalexin monohydrate [From Keflex] Allergy (Severe, Verified 09/29/16 17:11) Review of Systems ROS unobtainable: Due to endotracheal tube Physical Exam Vital Signs: Temp Pulse Resp BP Pulse Ox 98.5 F 29 H 86/71 L 78 L 12/18/17 14:31 12/18/17 14:31 12/18/17 14:31 12/18/17 14:10 Intake & Output 12/17/17 12/18/17 12/19/17 06:59 06:59 06:59 Intake Total 2258 Balance 2258 General appearance: PRESENT: morbidly obese, other - intubated Head exam: PRESENT: atraumatic, normocephalic Eye exam: PRESENT: conjunctiva pink, EOMI, PERRLA. ABSENT: scleral icterus Ear exam: PRESENT: normal external ear exam Neck exam: ABSENT: carotid bruit, JVD, lymphadenopathy, thyromegaly Respiratory exam: PRESENT: clear to auscultation ton. ABSENT: rales, rhonchi, wheezes Cardiovascular exam: PRESENT: RRR. ABSENT: diastolic murmur, rubs, systolic murmur Pulses: PRESENT: normal dorsalis pedis pul GI/Abdominal exam: PRESENT: normal bowel sounds, soft. ABSENT: distended, guarding, mass, organolmegaly, rebound, tenderness Rectal exam: PRESENT: deferred Extremities exam: PRESENT: +1 edema Neurological exam: PRESENT: awake, other - intubated but with good motor strength symmetrically Results Laboratory Results: 12/18/17 11:07 12/18/17 11:07 12/18/17 12/18/17 12/18/17 11:07 11:07 11:07 WBC 10.1 RBC 3.98 L Hgb 13.8 Hct 42.6 MCV 107 H MCH 34.7 H MCHC 32.4 RDW 16.8 H Plt Count 211 Seg Neutrophils % Not Reportable Lymphocytes % Not Reportable Monocytes % Not Reportable Eosinophils % Not Reportable Basophils % Not Reportable Absolute Neutrophils Not Reportable Absolute Lymphocytes Not Reportable Absolute Monocytes Not Reportable Absolute Eosinophils Not Reportable Absolute Basophils Not Reportable Carbonic Acid HCO3/H2CO3 Ratio ABG pH ABG pCO2 ABG pO2 ABG HCO3 ABG O2 Saturation ABG Base Excess FiO2 Sodium 133.0 L Potassium 4.7 Chloride 90 L Carbon Dioxide 14 L Anion Gap 29 H BUN 29 H Creatinine 3.63 H Est GFR ( Amer) 20 L Est GFR (Non-Af Amer) 16 L Glucose 74 L Lactic Acid 14.8 H Calcium 9.5 Total Bilirubin 1.2 AST 324 H ALT 68 Alkaline Phosphatase 85 Total Protein 6.3 Albumin 3.6 Urine Color Urine Appearance Urine pH Ur Specific [place] Urine Protein Urine Glucose (UA) Urine Ketones Urine Blood Urine Nitrite Ur Leukocyte Esterase Urine WBC (Auto) Urine RBC (Auto) 12/18/17 12/18/17 12:00 13:20 WBC RBC Hgb Hct MCV MCH MCHC RDW Plt Count Seg Neutrophils % Lymphocytes % Monocytes % Eosinophils % Basophils % Absolute Neutrophils Absolute Lymphocytes Absolute Monocytes Absolute Eosinophils Absolute Basophils Carbonic Acid 1.04 L HCO3/H2CO3 Ratio 17:1 ABG pH 7.35 ABG pCO2 34.4 L ABG pO2 169.2 H ABG HCO3 18.4 L ABG O2 Saturation 99.1 H ABG Base Excess -6.4 FiO2 80% Sodium Potassium Chloride Carbon Dioxide Anion Gap BUN Creatinine Est GFR ( Amer) Est GFR (Non-Af Amer) Glucose Lactic Acid Calcium Total Bilirubin AST ALT Alkaline Phosphatase Total Protein Albumin Urine Color YELLOW Urine Appearance SLIGHTLY-CLOUDY Urine pH 7.0 Ur Specific [place] 1.013 Urine Protein NEGATIVE Urine Glucose (UA) NEGATIVE Urine Ketones NEGATIVE Urine Blood NEGATIVE Urine Nitrite NEGATIVE Ur Leukocyte Esterase TRACE H Urine WBC (Auto) 9 Urine RBC (Auto) 5 12/18/17 12/18/17 11:07 11:07 Creatine Kinase 83988 H CK-MB (CK-2) 99.10 H Troponin I 0.653 Impressions: Chest X-Ray 12/18/17 11:05 IMPRESSION: 1. Appropriate endotracheal tube. 2. Endotracheal tube probably has its tip within the stomach, limited visualization. Assessment & Plan - Diagnosis (1) Cardiopulmonary arrest with successful resuscitation Is this a current diagnosis for this admission?: Yes Plan: S/P Cardiac arrest, PEA x 2. Patient received 1 dose of epi on each event. Exact etiology of PEA is unclear at the moment. Differentials include possible PE. Unable to do CTA due to acute renal failure. Will check do a stat echo and bilateral venous duplex. Will consult cardiology. A VQ scan was ordered. Called nuc med, apparently they are not able to do a complete VQ study today. Will empirically start heparin drip. Discussed with patient's family who prefers to have patient here admitted for tonight. (2) OMAR (acute kidney injury) Is this a current diagnosis for this admission?: Yes Plan: Possibly from rhabdomyolysis. Patient was given 3L of fluid bolus in the ER. Continue IV fluids at 100 cc/hr for now. (3) Rhabdomyolysis Qualifiers: Rhabdomyolysis type: non-traumatic Qualified Code(s): M62.82 - Rhabdomyolysis Is this a current diagnosis for this admission?: Yes Plan: Likely secondary to fall. IV fluids as mentioned. Will recheck CPK. (4) Lactic acidosis Is this a current diagnosis for this admission?: Yes Plan: Lactic acid was elevated at 14. Patient has been given IV fluids. Will check another lactic acid level. (5) Chronic atrial fibrillation Is this a current diagnosis for this admission?: Yes Plan: Patient is on coumadin at home. INR is 1.8. He will be switched to heparin drip. (6) Elevated troponin I level Is this a current diagnosis for this admission?: Yes Plan: Troponin at 0.6 but this was post arrest. EKG does not show acute changes suggestive of ischemia or infarction. Will consult cardiology. - Time Time Spent: 50 to 70 Minutes
[2017-12-18] MEDS ORDERED: PHENYLEPHRINE HCL INJ/PF 10 MG/1 ML SDV ONE (19:22)
[2017-12-18] MEDS ORDERED: PIPERACILLIN SODIUM/TAZOBACTAM 3.375 GM in NORMAL SALINE 100 ML IV PRN (19:49)
--- NOTE | 2017-12-18 19:49 | PDOC TRANSFER SUMMARY ---
General Admission Date/PCP: 12/18/17 15:41 [facility] [place] - Transfer Diagnosis (1) Cardiopulmonary arrest with successful resuscitation Is this a current diagnosis for this admission?: Yes (2) OMAR (acute kidney injury) Is this a current diagnosis for this admission?: Yes (3) Rhabdomyolysis Is this a current diagnosis for this admission?: Yes (4) Lactic acidosis Is this a current diagnosis for this admission?: Yes (5) Chronic atrial fibrillation Is this a current diagnosis for this admission?: Yes (6) Elevated troponin I level Is this a current diagnosis for this admission?: Yes - Transfer Medications Home Medications: Atorvastatin Calcium [Lipitor 10 mg Tablet] 10 mg PO QHS 09/30/16 Dutasteride [Avodart] 0.5 mg PO DAILY 09/30/16 Folic Acid [Folvite 1 mg Tablet] 1 mg PO DAILY 09/30/16 Gabapentin [Neurontin 300 mg Capsule] 300 mg PO QHS 09/30/16 Metoprolol Tartrate [Lopressor 50 mg Tablet] 50 mg PO Q12 09/30/16 Omeprazole 40 mg PO DAILY 09/30/16 Potassium Chloride [K-Tab ER] 20 meq PO DAILY 09/30/16 Prednisone [Deltasone 5 mg Tablet] 5 mg PO DAILY 09/30/16 Tamsulosin HCl [Flomax 0.4 mg Cap.sr] 0.4 mg PO DAILY 09/30/16 Aspirin [Aspirin EC] 81 mg PO DAILY 10/04/16 Ferrous Sulfate [Ferosul] 325 mg PO DAILY 10/04/16 Transfer Medications: Current Medications Heparin Sodium (Porcine) (Heparin Inj 1,000 Unit/Ml 10 Ml Vial) 0 - 15,000 unit IV .BOLUS PER PROTOCOL PRN; Protocol PRN Reason: RESPOND TO aPTT VALUE Stop: 01/17/18 18:34 Heparin Sodium/Dextrose (Heparin Rtu 25,000 Unit/250 Ml D5w Premix) 25,000 unit in 250 mls @ 0 mls/hr IV CONTINUOUS PRN; Protocol; Titrate PRN Reason: THIS MED IS NOT "PRN" Stop: 01/17/18 15:33 Midazolam HCl (Versed Rtu 50 Mg/100 Ml Premix Bag) 50 mg in 100 mls @ 0 mls/hr IV CONTINUOUS PRN; Protocol; Titrate PRN Reason: THIS MED IS NOT "PRN" Stop: 12/25/17 15:36 Last Admin: 12/18/17 15:50 Dose: 3 ml/hr, 3 mls/hr Norepinephrine Bitartrate 4 mg (/ Dextrose) 250 mls @ 0 mls/hr IV CONTINUOUS PRN; Protocol; Titrate PRN Reason: THIS MED IS NOT "PRN" Stop: 01/17/18 15:36 Sodium Chloride (Nacl 0.9% 1000 Ml Iv Soln) 1,000 mls @ 100 mls/hr IV CONTINUOUS PRN PRN Reason: THIS MED IS NOT "PRN" Stop: 01/17/18 16:06 Sodium Chloride (Saline Flush 2.5 Ml Monoject Prefil Syrin) 2.5 ml IV Q8 DORINDA Stop: 01/17/18 21:59 - Allergies Allergies/Adverse Reactions: cephalexin monohydrate [From Keflex] Allergy (Severe, Verified 09/29/16 17:11) Hospital Course Hospital Course: ROSLYN FELIX is a 77 year old male with a past medical history of chronic right LE ulcer, history of DVT, atrial fibrillation on coumadin, and who was brought in by EMS after being found unresponsive. History is obtained from ER staff and sister (surrogate decision maker). Patient reportedly has not been feeling well in the past 2 days. He called EMS this morning after falling at home 6 hrs before calling them. When EMS came, patient says he felt weak but refused to go the hospital. After a few hours, patient called EMS again and he was found unresponsive in the toilet with agonal respirations. Patient's sister did say that he complained of SOB last night when he called her over the phone but did not complain of any chest pain. He reportedly went into PEA while en route and was given a dose of epi before obtaining ROSC. Per ER nurse, patient was desaturating in the 80s while being ambubagged. In the ER, patient went into PEA again, was given a dose of epinephrine and ROSC was obtained after 4 minutes. He was hypotensive upon ROSC and was started on levophed drip. Patient did regain consciousness and was able to follow simple commands after ROSC. Patient's EKG showed [id number] pattern. Unable to do CTA chest due to acute renal failure possibly from rhabdomyolysis. A stat echo was done which showed normal LV function but reduced RV systolic function and dilated RV. No VQ scan available today. Patient was to be started on heparin drip but prior to hooking heparin, patient passed out bloody stools hence heparin drip was held. He has chronic right leg ulcers. He will be given a dose of vancomycin and Zosyn. Discussed in length with Dr. Alicia Celestin, manager intranet at [facility] who accepted the patient's transfer. Physical Exam Vital Signs: Temp Pulse Resp BP Pulse Ox 98.5 F 29 H 86/71 L 78 L 12/18/17 14:31 12/18/17 14:31 12/18/17 14:31 12/18/17 14:10 Intake & Output 12/17/17 12/18/17 12/19/17 06:59 06:59 06:59 Intake Total 46 Output Total 250 Balance -204 General appearance: PRESENT: other - intubated, sedated Head exam: PRESENT: atraumatic, normocephalic Eye exam: PRESENT: conjunctiva pink, EOMI, PERRLA. ABSENT: scleral icterus Ear exam: PRESENT: normal external ear exam Mouth exam: PRESENT: moist, tongue midline Neck exam: ABSENT: carotid bruit, JVD, lymphadenopathy, thyromegaly Respiratory exam: PRESENT: clear to auscultation ton. ABSENT: rales, rhonchi, wheezes Cardiovascular exam: PRESENT: RRR. ABSENT: diastolic murmur, rubs, systolic murmur Pulses: PRESENT: normal dorsalis pedis pul GI/Abdominal exam: PRESENT: normal bowel sounds, soft. ABSENT: distended, guarding, mass, organolmegaly, rebound, tenderness Rectal exam: PRESENT: deferred Neurological exam: PRESENT: other - intubated, sedated Results Laboratory Results: 12/18/17 15:45 12/18/17 12/18/17 15:45 15:45 Sodium 132.3 L Potassium 4.4 Chloride 94 L Carbon Dioxide 20 L Anion Gap 18 BUN 33 H Creatinine 3.34 H Est GFR ( Amer) 22 L Est GFR (Non-Af Amer) 18 L Glucose 59 L Lactic Acid 4.3 H Calcium 8.5 12/18/17 15:45 Troponin I 0.732 Impressions: Head CT 12/18/17 00:00 IMPRESSION: NORMAL BRAIN CT WITHOUT CONTRAST. EVIDENCE OF ACUTE STROKE: NO. Chest X-Ray 12/18/17 11:05 IMPRESSION: 1. Appropriate endotracheal tube. 2. Endotracheal tube probably has its tip within the stomach, limited visualization.
[2017-12-18] MEDS ORDERED: VANCOMYCIN HCL 0 MG in DEXTROSE 5%-WATER 250 ML IV NR (20:00)
--- NOTE | 2017-12-18 20:18 | Operative Report ---
Operative Report DATE OF SURGERY: 12/18/17 PREOPERATIVE DIAGNOSIS: 1. Respiratory arrest. 2. Cardiogenic shock POSTOPERATIVE DIAGNOSIS: Same OPERATION: 1. Focused ultrasound of the left neck. 2. Ultrasound directed insertion of left subclavian triple-lumen central venous access cath. 3. Ultrasound directed insertion of left wrist radial art line catheter SURGEON: ANN MCGINNIS ANESTHESIA: Local TISSUE REMOVED OR ALTERED: None COMPLICATIONS: None ESTIMATED BLOOD LOSS: Scant INTRAOPERATIVE FINDINGS: See below PROCEDURE: Patient was in Trendelenburg position. This was deemed an emergency. Consent was provided from the family. Left subclavian area was exposed, prepped draped sterile fashion. Focused ultrasound performed showed patent left subclavian vein. Skin was anesthetized with 1% plain lidocaine, using Seldinger technique, the left subclavian vein was cannulated without difficulty wire threaded position, tract dilated up and a triple-lumen central venous access catheter was threaded all the way to the hub at 23 cm. There was excellent blood flow through all 3 lm. Catheter was washed with saline solution, secured to the skin at 3 sites with 2-0 silk suture Biopatch applied. Sterile dressing was applied. Portable chest x-ray pending at time of dictation. Left wrist was examined. There is a faint palpable radial pulse. The skin was prepped and draped with Betadine, anesthetized with 1% lidocaine without epinephrine. Using ultrasound as a guide, a left 16-gauge radial art line was threaded into the left radial artery without difficulty. There was excellent pulsatile arterial flow, and catheter hooked to monitoring devices with appropriate waveform. Catheter was secured with 3-0 Vicryl suture at several different sites and appropriate dressing was applied. Patient taught procedure well. Ongoing ICU care provided by hospital service.
[2017-12-18] MEDS ORDERED: VANCOMYCIN HCL INJ 1000 MG VIAL IV PRN (20:24)
[2017-12-18] MEDS ORDERED: VANCOMYCIN HCL 2,000 MG in DEXTROSE 5%-WATER 500 ML IV ONE (20:30)
--- NOTE | 2017-12-18 21:08 | RADIOLOGY REPORT (SQ) ---
EXAM DESCRIPTION: XR CHEST 1 VIEW COMPLETED DATE/TME: 12/18/2017 00:00 CLINICAL HISTORY: 77 years, Male, central line placement Compared to 12/18/2017 at 11:21 AM. FINDINGS: Heart is moderately enlarged. Endotracheal tube and enteric tube are in appropriate placement. No pneumothorax. No pulmonary edema. Left subclavian CVC is in place with catheter tip in the proximal SVC. No pneumothorax. IMPRESSION: Lines and tubes of life-support in place.
[2017-12-18 21:11] LABS: HEMOGLOBIN 12.6 g/dL (13.5-17.0); MEAN CORPUSCULAR HEMOGLOBIN 34.1 pg (27.0-33.4); MEAN CORPUSCULAR HGB CONC 33.1 g/dL (32.0-36.0); PLATELET COUNT 172 10^3/uL (150-450); RED BLOOD COUNT 3.69 10^6/uL (4.35-5.55); RED CELL DISTRIBUTION WIDTH 16.3 % (11.5-14.0); WHITE BLOOD COUNT 10.4 10^3/uL (4.0-10.5)
[2017-12-18 21:13] LABS: MEAN CORPUSCULAR VOLUME 103 fl (80-97)
--- NOTE | 2017-12-18 21:23 | XCELERA REPORT ---
[address] [address] Transthoracic Echocardiogram Report Name: ROSLYN FELIX Age: 77 yrs Gender: Male : 1940 Patient Status: Emergency Patient Location: ER Study Date: 12/18/2017 03:12 PM Height: 73 in Weight: 300 lb BSA: 2.6 m2 Procedure: A complete two-dimensional transthoracic echocardiogram was performed (2D, M-mode, spectral and color flow Doppler). The study was technically adequate with some images being suboptimal in quality. Reason For Study: post arrest Ordering Physician: GILBERT LUNA Performed By: Prem Moore Interpretation Summary The left ventricular ejection fraction is preserved. There is mild concentric left ventricular hypertrophy. The left ventricle is grossly normal size. LV diastolic function could not be adequately assessed. Regional wall motion abnormalities cannot be excluded due to limited visualization. The right ventricular systolic function is moderately reduced. The right ventricle is moderately dilated. The left atrium is mildly dilated. The right atrium is moderately dilated. There is a trace to mild amount of mitral regurgitation There is no mitral valve stenosis. No aortic regurgitation is present. There is no aortic valve stenosis There is a trace or physiologic amount of tricuspid regurgitation Tricuspid regurgitation jet envelope not well defined to measure RV systolic pressure accurately. Minimal pericardial effusion. MMode/2D Measurements & Calculations RVDd: 3.1 cm LVIDd: 4.7 cm FS: 15.4 % IVSd: 1.3 cm LVIDs: 3.9 cm EDV(Teich): 100.9 ml LVPWd: 1.8 cm ESV(Teich): 67.9 ml EF(Teich): 32.7 % Doppler Measurements & Calculations MV E max marybeth: MV dec slope: Ao V2 max: LV V1 max P.4 cm/sec 476.4 cm/sec2 99.6 cm/sec 1.4 mmHg MV A max marybeth: MV dec time: 0.24 sec Ao max P.0 mmHgLV V1 max: 101.3 cm/sec 59.6 cm/sec MV E/A: 1.1 PA V2 max: PI end-d marybeth: TR max marybeth: 82.4 cm/sec 136.7 cm/sec 179.8 cm/sec PA max P.7 mmHg TR max P.9 mmHg Left Ventricle The left ventricle is grossly normal size. There is mild concentric left ventricular hypertrophy. The left ventricular ejection fraction is preserved. LV diastolic function could not be adequately assessed. Regional wall motion abnormalities cannot be excluded due to limited visualization. Right Ventricle The right ventricle is moderately dilated. The right ventricular systolic function is moderately reduced. Atria The right atrium is moderately dilated. The left atrium is mildly dilated. Interarterial septum not well visualized and not well dopplered. Cannot comment on ASD/PFO presence. Mitral Valve The mitral valve leaflets are sclerotic, but show no functional abnormalities. There is no mitral valve stenosis. There is a trace to mild amount of mitral regurgitation. Aortic Valve The aortic valve is grossly normal. There is no aortic valve stenosis. No aortic regurgitation is present. Tricuspid Valve The tricuspid valve is not well visualized, but is grossly normal. There is no tricuspid stenosis. There is a trace or physiologic amount of tricuspid regurgitation. Tricuspid regurgitation jet envelope not well defined to measure RV systolic pressure accurately. Pulmonic Valve The pulmonic valve is not well visualized. Great Vessels The aortic root is not well visualized. The inferior vena cava appeared normal and decreased > 50% with respiration (RAP 5-10 mmHg). Effusions Minimal pericardial effusion. : GILBERT LUNA > Ramiro Scott
[2017-12-18 21:25] LABS: ARTERIAL BLOOD FIO2 80%; ARTERIAL BLOOD H2CO3 1.04 mmol/L (1.05-1.35); ARTERIAL BLOOD PCO2 34.5 mmHg (35-45); ARTERIAL BLOOD PH 7.37 (7.35-7.45)
[2017-12-18 21:26] LABS: ARTERIAL BLOOD HCO3 19.5 mmol/L (20-24); ARTERIAL BLOOD O2 SATURATION 98.9 % (94-98); ARTERIAL BLOOD PO2 148.7 mmHg (80-100); ARTERIAL BLOOD TOTAL CO2 20.6 mmol/L (23-27)
[2017-12-18 22:18] VITALS: BP 108/83
--- NOTE | 2017-12-19 08:20 | XCELERA REPORT ---
[address] [address] Lower Extremity Venous Evaluation Procedure: Color flow and duplex imaging bilaterally of the veins of the lower extremities as well as the Common Femoral veins. Right Sided Venous Evaluation Study compromised due to the presence of bandaging from knee to foot. Normal vessel filling wall to wall, compression and augmentation as well as Colour flow down to the femoral veins. Left Sided Venous Evaluation Normal vessel filling wall to wall, compression and augmentation as well as Colour flow down to the infrageniculate veins. Interpretation Summary No duplex evidence of DVT or obstruction in the bilateral lower extremities. Study not able to speak to the left leg veins, due to the presence of bandaging from knee to foot. Name: ROSLYN FELIX Age: 77 yrs Gender: Male : 1940 Patient Status: Inpatient Patient Location: [place] [address]^A Study Date: 12/18/2017 05:49 PM Reason For Study: r/o DVT Ordering Physician: GILBERT LUNA Performed By: Prem Moore : GILBERT LUNA > Micha Torre
--- NOTE | 2017-12-19 10:17 | PDOC CONSULTATION ---
Consultation Consult Date: 12/18/17 Attending physician:: GILBERT VIGIL Consult reason:: Status post cardiac arrest resuscitation, atrial fibrillation, hypotension History of Present Illness Admission Date/PCP: 12/18/17 15:41 [facility] Patient complains of: Post cardiac arrest resuscitation, currently intubated and artificially ventilated. History of Present Illness: ROSLYN FELIX is a 77 year old male with a past medical history of chronic right LE ulcer, history of DVT, atrial fibrillation on coumadin, and who was brought in by EMS after being found unresponsive. History is obtained from ER staff and sister (surrogate decision maker). Patient reportedly has not been feeling well in the past 2 days. He called EMS this morning after falling at home 6 hrs before calling them. When EMS came, patient says he felt weak but refused to go the hospital. After a few hours, patient called EMS again and he was found unresponsive in the toilet with agonal respirations. Patient was intubated. He reportedly went into PEA while en route and was given a dose of epi before obtaining ROSC. In the ER, patient went into PEA again, was given a dose of epinephrine and ROSC was obtained after 4 minutes. Patient did regain consciousness and was able to follow simple commands after ROSC. Patient's sister did say that he complained of SOB last night when he called her over the phone but did not complain of any chest pain. This history was reviewed and confirmed with patient sister who was at bedside. Patient actually is followed by Dr. Radames HINSON at my office. Past Medical History Cardiac Medical History: Reports: Atrial Fibrillation, DVT, Hypertension Denies: Myocardial Infarction Pulmonary Medical History: Denies: Asthma Neurological Medical History: Denies: Seizures GI Medical History: Reports: Gastroesophageal Reflux Disease Denies: Hepatitis, Hiatal Hernia Musculoskeltal Medical History: Reports: Arthritis Psychiatric Medical History: Reports: Depression Hematology: Reports: Anemia Denies: Sickle Cell Disease Past Surgical History Past Surgical History: Reports: Orthopedic Surgery - Hip replacement Denies: Pacemaker Social History Information Source: Relative Smoking Status: Unknown if Ever Smoked Frequency of Alcohol Use: None Hx Recreational Drug Use: No Drugs: None Hx Prescription Drug Abuse: No - Advance Directive Resuscitation Status: Full Code Surrogate healthcare decision maker:: Patient sister is the surrogate decision-maker Family History Family History: Other - Currently not available Parental Family History Reviewed: No Children Family History Reviewed: No Sibling(s) Family History Reviewed.: No - Family history currently not available. Medication/Allergy Home Medications: Atorvastatin Calcium [Lipitor 10 mg Tablet] 10 mg PO QHS 09/30/16 Dutasteride [Avodart] 0.5 mg PO DAILY 09/30/16 Folic Acid [Folvite 1 mg Tablet] 1 mg PO DAILY 09/30/16 Gabapentin [Neurontin 300 mg Capsule] 300 mg PO QHS 09/30/16 Metoprolol Tartrate [Lopressor 50 mg Tablet] 50 mg PO Q12 09/30/16 Omeprazole 40 mg PO DAILY 09/30/16 Potassium Chloride [K-Tab ER] 20 meq PO DAILY 09/30/16 Prednisone [Deltasone 5 mg Tablet] 5 mg PO DAILY 09/30/16 Tamsulosin HCl [Flomax 0.4 mg Cap.sr] 0.4 mg PO DAILY 09/30/16 Aspirin [Aspirin EC] 81 mg PO DAILY 10/04/16 Ferrous Sulfate [Ferosul] 325 mg PO DAILY 10/04/16 Acetaminophen [Tylenol 325 mg Tablet] 650 mg PO Q6HP PRN tablet 10/06/16 Allopurinol [Zyloprim 100 mg Tablet] 100 mg PO DAILY #30 tablet 10/06/16 Amox Tr/Potassium Clavulanate [Augmentin "500" Tablet] 1 tab PO Q8 7 Days #21 tablet 10/06/16 Citalopram Hydrobromide [Celexa 20 mg Tablet] 20 mg PO DAILY #30 tablet Furosemide [Lasix 20 mg Tablet] 20 mg PO DAILY tablet 10/06/16 Warfarin Sodium [Coumadin 4 mg Tablet] 4 mg PO QHS #30 tablet 10/06/16 Allergies/Adverse Reactions: cephalexin monohydrate [From Keflex] Allergy (Severe, Verified 09/29/16 17:11) Review of Systems ROS unobtainable: Due to endotracheal tube Physical Exam Vital Signs: Temp Pulse Resp BP Pulse Ox 98.5 F 29 H 86/71 L 78 L 12/18/17 14:31 12/18/17 14:31 12/18/17 14:31 12/18/17 14:10 Intake & Output 12/17/17 12/18/17 12/19/17 06:59 06:59 06:59 Intake Total 46 Output Total 250 Balance -204 Exam: GENERAL: well-nourished and in no acute distress. Patient is intubated and sedated. Orientation cannot be checked HEAD: Atraumatic, normocephalic. EYES: Pupils equal round and reactive to light, extraocular movements could not be checked, sclera anicteric, conjunctiva are normal. ENT: TMs normal, nares patent, oropharynx clear without exudates. Moist mucous membranes. No oral ulcerations or bleeding gums noted NECK: supple without lymphadenopathy or JVD. Trachea is central. No cervical or axillary lymphadenopathy noted. Carotids are 2+ LUNGS: Breath sounds mostly clear to auscultation patient is noted to have bibasal crackles at the extreme bases CHEST: Palpation of the chest wall shows no significant chest wall tenderness or abnormalities. HEART: Bertram STAIN REMOVER, No PSH, 2/6 NILDA aortic area, 1/6 castillo systolic murmur mitral area , no rubs or gallops. ABDOMEN: Soft, no significant tenderness appreciated, normoactive bowel sounds. No guarding, no rebound. No rigidity noted . No masses appreciated. EXTREMITIES: Pedal pulses are 1-2+, no calf tenderness noted, 1+ pedal edema noted. No clubbing or cyanosis. NEUROLOGICAL: The patient cannot participate in the neurological exam but no facial asymmetry noted. Extremities slightly hypotonic PSYCH: This cannot be evaluated. Patient cannot participate. SKIN: No significant ecchymosis, rash, or signs of pruritus noted. MUSCULOSKELETAL EXAM: No significant joint swelling noted. Patient cannot participate in musculoskeletal exam Results Laboratory Results: 12/18/17 21:00 12/18/17 15:45 12/18/17 12/18/17 12/18/17 15:45 15:45 21:00 WBC RBC Hgb Hct MCV MCH MCHC RDW Plt Count Carbonic Acid 1.04 L HCO3/H2CO3 Ratio 18:1 ABG pH 7.37 ABG pCO2 34.5 L ABG pO2 148.7 H ABG HCO3 19.5 L ABG O2 Saturation 98.9 H ABG Base Excess -5.0 FiO2 80% Sodium 132.3 L Potassium 4.4 Chloride 94 L Carbon Dioxide 20 L Anion Gap 18 BUN 33 H Creatinine 3.34 H Est GFR ( Amer) 22 L Est GFR (Non-Af Amer) 18 L Glucose 59 L Lactic Acid 4.3 H Calcium 8.5 12/18/17 21:00 WBC 10.4 RBC 3.69 L Hgb 12.6 L Hct 38.0 MCV 103 H D MCH 34.1 H MCHC 33.1 RDW 16.3 H Plt Count 172 Carbonic Acid HCO3/H2CO3 Ratio ABG pH ABG pCO2 ABG pO2 ABG HCO3 ABG O2 Saturation ABG Base Excess FiO2 Sodium Potassium Chloride Carbon Dioxide Anion Gap BUN Creatinine Est GFR ( Amer) Est GFR (Non-Af Amer) Glucose Lactic Acid Calcium 12/18/17 12/18/17 12/18/17 15:45 21:00 21:00 Creatine Kinase 83058 H CK-MB (CK-2) 126.00 H Troponin I 0.732 NT-Pro-B Natriuret Pep 9680 H 12/18/17 21:00 Creatine Kinase CK-MB (CK-2) Troponin I 0.889 NT-Pro-B Natriuret Pep EKG Comments: Atrial fibrillation with somewhat of a rapid ventricular response but no acute ST-T wave changes are noted Impressions: Head CT 12/18/17 00:00 IMPRESSION: NORMAL BRAIN CT WITHOUT CONTRAST. EVIDENCE OF ACUTE STROKE: NO. Chest X-Ray 12/18/17 11:05 IMPRESSION: 1. Appropriate endotracheal tube. 2. Endotracheal tube probably has its tip within the stomach, limited visualization. Assessment & Plan - Diagnosis (1) Cardiac arrest Is this a current diagnosis for this admission?: Yes (2) Atrial fibrillation Qualifiers: Atrial fibrillation type: chronic Qualified Code(s): I48.2 - Chronic atrial fibrillation Is this a current diagnosis for this admission?: Yes (4) Elevated troponin I level Is this a current diagnosis for this admission?: Yes (5) Hypotension arterial Qualifiers: Hypotension type: unspecified hypotension type Qualified Code(s): I95.9 - Hypotension, unspecified Is this a current diagnosis for this admission?: Yes (6) Acute respiratory failure with hypoxemia Is this a current diagnosis for this admission?: Yes (7) Non-STEMI (non-ST elevated myocardial infarction) Is this a current diagnosis for this admission?: Yes (8) Hypotension Qualifiers: Hypotension type: unspecified hypotension type Qualified Code(s): I95.9 - Hypotension, unspecified Is this a current diagnosis for this admission?: Yes (9) OMAR (acute kidney injury) Is this a current diagnosis for this admission?: Yes (10) Acute on chronic diastolic heart failure Is this a current diagnosis for this admission?: Yes - Notes Notes: Patient is status post successful resuscitation of cardiac arrest. Patient was noted to have pulseless electrical activity which responded to epinephrine. And external cardiac compression. Patient subsequently was intubated. I was asked to evaluate and help in management. A stat echo was ordered. I was there while it was being performed. No pericardial effusion was noted. RV function was noted to be depressed with RV being moderately dilated. LVEF was noted to be within normal limits. Quality of echo was suboptimal therefore regional wall motion could not be accurately commented upon. Patient was also noted to be in RVR atrial fibrillation with RVR. It was felt that pulmonary embolism would need to be ruled out. And patient managing physician Dr. vigil was advised to place patient on heparin. Patient was already on Levophed drip for maintaining blood pressure. Patient ventilatory status is being managed with artificial ventilation and oxygenation. Patient was partially anticoagulated therefore heparin was felt to be the safest option. Did not feel patient would benefit from thrombolytics as we needed to confirm the diagnosis. Patient was noted to be gravely ill. Approximately 35 minutes of critical care time spent. Subsequently I was informed by the hospitalist that patient has been accepted at [facility]. Prior to acceptance patient had arterial line placed and a central line placed by the surgeon. Patient prognosis is grave. Patient does have troponin I elevation but it is felt related to cardiopulmonary arrest and not due to acute coronary syndrome. Patient EKG did not show any acute ST-T wave changes. Patient has known history of atrial fibrillation. This could all be related to pulmonary embolism. Patient also has acute kidney injury possibly related to hypotension, anoxic kidney injury, possibly on top of chronic renal failure. Overall prognosis is grave was explained to patient's relatives. - Time Time Spent: 30 to 50 Minutes - CODE STATUS was discussed, patient remains full code. Surrogate decision-maker patient's sister. Multiple medical problems were addressed. More than 50% of the time spent coordinating care, discussing management plans with involved caregivers. Management plans discussed with involved personnels. Medical decision making was of moderate to high complexity , patient's has multiple comorbidities. Total Critical Time (Minutes): 35
== END 2017-12-18 22:15 | disposition short-term general hospital (02) | DRG 280 ==
LOC: ER 10:54 → EH 15:41 → ICU 19:05
PROVIDERS: ADMIT Internal Medicine; ATTEND Internal Medicine
PROC: 5A1935Z Respiratory Ventilation, Less than 24 Consecutive Hours (ICD-10-PCS; principal; 2017-12-18)
PROC: 0BH17EZ Insertion of Endotracheal Airway into Trachea, Via Natural or Artificial Opening (ICD-10-PCS; 2017-12-18)
PROC: 5A12012 Performance of Cardiac Output, Single, Manual (ICD-10-PCS; 2017-12-18)
PROC: 02HV33Z Insertion of Infusion Device into Superior Vena Cava, Percutaneous Approach (ICD-10-PCS; 2017-12-18)
PROC: B548ZZA Ultrasonography of Superior Vena Cava, Guidance (ICD-10-PCS; 2017-12-18)
PROC: 04HY32Z Insertion of Monitoring Device into Lower Artery, Percutaneous Approach (ICD-10-PCS; 2017-12-18)
PROC: 4A133B1 Monitoring of Arterial Pressure, Peripheral, Percutaneous Approach (ICD-10-PCS; 2017-12-18)
PROC: 4A133J1 Monitoring of Arterial Pulse, Peripheral, Percutaneous Approach (ICD-10-PCS; 2017-12-18)
DX: I46.9 Cardiac arrest, cause unspecified (principal); J96.01 Acute respiratory failure with hypoxia; I21.4 Non-ST elevation (NSTEMI) myocardial infarction; I50.33 Acute on chronic diastolic (congestive) heart failure; M62.82 Rhabdomyolysis; N17.9 Acute kidney failure, unspecified; E87.2 Acidosis; L97.919 Non-pressure chronic ulcer of unspecified part of right lower leg with unspecified severity; Z86.74 Personal history of sudden cardiac arrest; I48.2 Chronic atrial fibrillation; W19.XXXA Unspecified fall, initial encounter; I95.9 Hypotension, unspecified; K21.9 Gastro-esophageal reflux disease without esophagitis; M19.90 Unspecified osteoarthritis, unspecified site; F32.9 Major depressive disorder, single episode, unspecified; D64.9 Anemia, unspecified; I11.0 Hypertensive heart disease with heart failure; E66.01 Morbid (severe) obesity due to excess calories; I45.10 Unspecified right bundle-branch block; E86.0 Dehydration; Z96.649 Presence of unspecified artificial hip joint; Z79.899 Other long term (current) drug therapy; Z88.1 Allergy status to other antibiotic agents; Z86.718 Personal history of other venous thrombosis and embolism; Z79.01 Long term (current) use of anticoagulants; Z79.82 Long term (current) use of aspirin
CPT/HCPCS: 36415; 51702; 70450; 71045; 80048; 80053; 80307; 81001; 82550; 82553; 82803; 82962; 83605; 83880; 84484; 85025; 85027; 85610; 85730; 92950; 93005; 93010; 93306; 93970; 94002; 96365; 96366; 96375; 99291; 99292; C1751; J0171; J1644; J2060; J2250; J2370; J3490; J7030; J7060